=== PATIENT | female | born 1960 | race Caucasian/White ===

== ENCOUNTER 2019-09-27 03:00 | Emergency (ER) | payer MEDICARE, OTHER ==
[2019-09-27] MEDS ORDERED: Ondansetron 4 MG/2 ML SDV IVPUSH ONE ×2 (03:35→04:49)
[2019-09-27] MEDS: Sodium Chloride 0.9% 1,000 ML IV ONE ×2 (03:35→04:50)
[2019-09-27] MEDS ORDERED: Sodium Chloride 0.9% 1,000 ML IV ONE (04:49)
[2019-09-27] MEDS ORDERED: HYDROmorphone 2 MG/ML SDV IVPUSH ONE ×2 (04:50→06:17)
--- NOTE | 2019-09-27 05:58 | EDM.PDOC ---
ED HPI GENERAL MEDICAL PROBLEM - General Chief Complaint: Abdominal Pain Stated Complaint: Abdominal pain Time Seen by Provider: 09/27/19 03:05 Source of Information: Reports: Patient History Limitations: Reports: No Limitations - History of Present Illness INITIAL COMMENTS - FREE TEXT/NARRATIVE: Patient presented to theED because of 2 day h/o abdominal pain, cramping and diffuse,10 with several episode of n/f today. There is no associated fever or chills, no changes in bowel movements or urinary symptoms. She has a h/o intraabdominal surgeries which include: hysterectomy,appendectomy, cholecystectomy and gastric bypass. - Related Data Allergies Allergy/AdvReac Type Severity Reaction Status Date / Time Penicillins Allergy Rash Verified 09/27/19 04:21 Home Meds: Home Meds Acetaminophen/HYDROcodone [[place] 325-10 MG] 1 tab Q6H PRN 09/27/19 [History] Furosemide 20 mg DAILY 09/27/19 [History] Methotrexate Sodium [Methotrexate] 17.5 mg WE 09/27/19 [History] Nabumetone [Relafen] 500 - 1,000 mg BID 09/27/19 [History] clonazePAM [Clonazepam] 1 mg DAILY 09/27/19 [History] clonazePAM [Clonazepam] 1 mg DAILY PRN 09/27/19 [History] hydrOXYzine pamoate [Hydroxyzine Pamoate] 50 mg BID PRN 09/27/19 [History] sulfaSALAzine [sulfaSALAzine DR] 1,000 mg BID 09/27/19 [History] Past Medical History Gastrointestinal History: Reports: Bowel Obstruction, Cholelithiasis Psychiatric History: Reports: Anxiety, Depression ED ROS GENERAL - Review of Systems Review Of Systems: See Below Constitutional: Reports: No Symptoms HEENT: Reports: No Symptoms Respiratory: Reports: No Symptoms Cardiovascular: Reports: No Symptoms Endocrine: Reports: No Symptoms GI/Abdominal: Reports: No Symptoms : Reports: No Symptoms Musculoskeletal: Reports: No Symptoms Skin: Reports: No Symptoms Neurological: Reports: No Symptoms Hematologic/Lymphatic: Reports: No Symptoms Immunologic: Reports: No Symptoms ED EXAM, GI/ABD - Physical Exam Exam: See Below Exam Limited By: No Limitations General Appearance: Alert, No Apparent Distress Ears: Normal External Exam, Normal Canal, Hearing Grossly Normal Nose: Normal Inspection, Normal Mucosa, No Blood Throat/Mouth: Normal Inspection, Normal Lips, Normal Teeth, Normal Gums Head: Atraumatic, Normocephalic Neck: Normal Inspection, Supple, Non-Tender, Full Range of Motion Respiratory/Chest: No Respiratory Distress, Lungs Clear, Normal Breath Sounds, No Accessory Muscle Use, Chest Non-Tender Cardiovascular: Normal Peripheral Pulses, Regular Rate, Rhythm, No Edema, No Gallop, No JVD, No Murmur, No Rub GI/Abdominal Exam: Soft, No Organomegaly, No Distention, No Mass, Other ( diffusely tender) Back Exam: Normal Inspection, Full Range of Motion Extremities: Normal Inspection, Normal Range of Motion Neurological: Alert, Oriented, CN II-XII Intact, Normal Cognition Course - Vital Signs Text/Narrative:: Labs/CT abd/pelvis were discussed with patient and significant other and verbalized full understanding NS 2 L bolus zofran 4 mg IV x2 morphine 4 mg IV x1 dilaudid 1 mg IV x1 Case discussed with Dr Kim Last Recorded V/S: Last Vital Signs Temp 36.2 C 09/27/19 03:00 Pulse 64 09/27/19 03:00 Resp 18 09/27/19 03:00 BP 105/53 L 09/27/19 03:00 Pulse Ox 90 L 09/27/19 03:00 - Orders/Labs/Meds Orders: Active Orders 24 hr Category Date Time Status Abdomen Pelvis w Cont [CT] Stat Exams 09/27/19 04:21 Ordered Labs: Laboratory Tests 09/27/19 09/27/19 09/27/19 Range/Units 03:40 03:40 03:40 WBC 10.7 (4.5-12.0) X10-3/uL RBC 4.41 (3.23-5.20) x10(6)uL Hgb 12.7 (11.5-15.5) g/dL Hct 39.1 (30.0-51.3) % MCV 88.6 (80-96) fL MCH 28.9 (27.7-33.6) pg MCHC 32.6 (32.2-35.4) g/dL RDW 16.1 H (11.5-15.5) % Plt Count 445 H (125-369) X10(3)uL MPV 7.0 L (7.4-10.4) fL Add Manual Diff Yes Neutrophils % (Manual) 84 H (46-82) % Band Neutrophils % 2 (0-6) % Lymphocytes % (Manual) 9 L (13-37) % Monocytes % (Manual) 4 (4-12) % Eosinophils % (Manual) 1 (0-5) % Anisocytosis Rare Sodium 132 L (135-145) mmol/L Potassium 4.6 (3.5-5.3) mmol/L Chloride 94 L (100-110) mmol/L Carbon Dioxide 29 (21-32) mmol/L BUN 7 (7-18) mg/dL Creatinine 1.0 (0.55-1.02) mg/dL Est Cr Clr Drug Dosing TNP Estimated GFR (MDRD) 56 L (>60) BUN/Creatinine Ratio 7.0 L (9-20) Glucose 116 (80-116) mg/dL Calcium 8.7 (8.6-10.2) mg/dL Total Bilirubin 0.3 (0.1-1.3) mg/dL AST 28 H (5-25) IU/L ALT 18 (12-36) U/L Alkaline Phosphatase 92 (56-112) IU/L Total Protein 7.2 (6.0-8.0) g/dL Albumin 3.5 (3.2-4.6) g/dL Globulin 3.7 g/dL Albumin/Globulin Ratio 1.0 Amylase 53 (25-115) U/L Lipase 204 (73-393) U/L Urine Color (YELLOW) Urine Appearance (CLEAR) Urine pH (5.0-6.5) Ur Specific [place] (1.010-1.025) Urine Protein (NEGATIVE) mg/dL Urine Glucose (UA) (NORMAL) mg/dL Urine Ketones (NEGATIVE) mg/dL Urine Occult Blood (NEGATIVE) Urine Nitrite (NEGATIVE) Urine Bilirubin (NEGATIVE) Urine Urobilinogen (NEGATIVE) mg/dL Ur Leukocyte Esterase (NEGATIVE) Urine RBC (0-5) Urine WBC (0-5) Ur Squamous Epith Cells (NS,R,O) Urine Bacteria (NS) 09/27/19 Range/Units 04:50 WBC (4.5-12.0) X10-3/uL RBC (3.23-5.20) x10(6)uL Hgb (11.5-15.5) g/dL Hct (30.0-51.3) % MCV (80-96) fL MCH (27.7-33.6) pg MCHC (32.2-35.4) g/dL RDW (11.5-15.5) % Plt Count (125-369) X10(3)uL MPV (7.4-10.4) fL Add Manual Diff Neutrophils % (Manual) (46-82) % Band Neutrophils % (0-6) % Lymphocytes % (Manual) (13-37) % Monocytes % (Manual) (4-12) % Eosinophils % (Manual) (0-5) % Anisocytosis Sodium (135-145) mmol/L Potassium (3.5-5.3) mmol/L Chloride (100-110) mmol/L Carbon Dioxide (21-32) mmol/L BUN (7-18) mg/dL Creatinine (0.55-1.02) mg/dL Est Cr Clr Drug Dosing Estimated GFR (MDRD) (>60) BUN/Creatinine Ratio (9-20) Glucose (80-116) mg/dL Calcium (8.6-10.2) mg/dL Total Bilirubin (0.1-1.3) mg/dL AST (5-25) IU/L ALT (12-36) U/L Alkaline Phosphatase (56-112) IU/L Total Protein (6.0-8.0) g/dL Albumin (3.2-4.6) g/dL Globulin g/dL Albumin/Globulin Ratio Amylase (25-115) U/L Lipase (73-393) U/L Urine Color Yellow (YELLOW) Urine Appearance Clear (CLEAR) Urine pH 7.0 H (5.0-6.5) Ur Specific [place] 1.005 L (1.010-1.025) Urine Protein Negative (NEGATIVE) mg/dL Urine Glucose (UA) Normal (NORMAL) mg/dL Urine Ketones Negative (NEGATIVE) mg/dL Urine Occult Blood Negative (NEGATIVE) Urine Nitrite Negative (NEGATIVE) Urine Bilirubin Negative (NEGATIVE) Urine Urobilinogen Normal (NEGATIVE) mg/dL Ur Leukocyte Esterase Negative (NEGATIVE) Urine RBC 0-5 (0-5) Urine WBC 0-5 (0-5) Ur Squamous Epith Cells Few H (NS,R,O) Urine Bacteria Few H (NS) Meds: Medications Discontinued Medications Generic Name Dose Route Start Last Admin Trade Name Freq PRN Reason Stop Dose Admin Hydromorphone HCl 1 mg 09/27/19 04:50 09/27/19 05:02 Dilaudid IVPUSH 09/27/19 04:51 1 mg ONETIME ONE Administration Sodium Chloride 1,000 mls @ 999 mls/hr 09/27/19 03:45 09/27/19 03:35 Normal Saline IV 09/27/19 04:45 999 mls/hr .BOLUS ONE Administration Sodium Chloride 1,000 mls @ 999 mls/hr 09/27/19 04:49 09/27/19 04:50 Normal Saline IV 09/27/19 05:49 999 mls/hr .BOLUS ONE Administration Morphine Sulfate 4 mg 09/27/19 03:35 Morphine IVPUSH 09/27/19 03:36 ONETIME ONE Ondansetron HCl 4 mg 09/27/19 04:49 09/27/19 05:00 Zofran IVPUSH 09/27/19 04:50 4 mg ONETIME ONE Administration Ondansetron HCl 4 mg 09/27/19 03:35 Zofran IVPUSH 09/27/19 03:36 ONETIME ONE Departure - Departure Time of Disposition: 05:50 Disposition: DC/Tfer to Acute Hospital 02 Condition: Good Clinical Impression: SBO (small bowel obstruction) - Discharge Information Instructions: Small Bowel Obstruction, [id number] Referrals: Andria Mccord PA [Primary Care Provider] - Sepsis Event Note - Evaluation Sepsis Screening Result: No Definite Risk - Focused Exam Vital Signs: Vital Signs Temp Pulse Resp BP Pulse Ox 09/27/19 03:00 36.2 C 64 18 105/53 L 90 L Date Exam was Performed: 09/27/19 Time Exam was Performed: 05:52 - My Orders Last 24 Hours: My Active Orders 09/27/19 04:21 Abdomen Pelvis w Cont [CT] Stat - Assessment/Plan Last 24 Hours: My Active Orders 09/27/19 04:21 Abdomen Pelvis w Cont [CT] Stat
[2019-09-27] MEDS ORDERED: Iopamidol 755 Mg/ML 100 ML Bottle IV ONE (07:46)
== END 2019-09-27 06:55 ==
LOC: FB.ED 03:00
DX: K56.609 Unspecified intestinal obstruction, unspecified as to partial versus complete obstruction (principal); F41.9 Anxiety disorder, unspecified; Z88.0 Allergy status to penicillin; Z79.899 Other long term (current) drug therapy
CPT/HCPCS: 36415; 74177; 80053; 81001; 82150; 83690; 85025; 96361; 96374; 96375; 96376; 99284; 99285-25; J1170; J2270; J2405; J7030; Q9967

== ENCOUNTER 2020-05-28 16:26 | Emergency (ER) | payer MEDICARE ==
[2020-05-28] MEDS ORDERED: Sodium Chloride 0.9% 10 ML Syringe FLUSH PRN (16:46)
[2020-05-28] MEDS ORDERED: LORazepam 2 MG/ML SDV IVPUSH ONE (16:46)
--- NOTE | 2020-05-28 16:52 | EDM.PDOC ---
ED HPI GENERAL MEDICAL PROBLEM - General Chief Complaint: Cardiovascular Problem Stated Complaint: SENT FROM CLINIC Time Seen by Provider: 05/28/20 16:47 Source of Information: Reports: Patient History Limitations: Reports: No Limitations - History of Present Illness INITIAL COMMENTS - FREE TEXT/NARRATIVE: Presents with chest pressure and sob with exertion x3 days. Patient feels very anxious and has been under a lot of stress because she has been caring for her daughter after undergoing hip surgery. Patient had a normal coronary angiogram in 12/2019. Denies fevers, cough, or known exposure to COVID-19. PMHx includes HTN and Anxiety. Denies prior h/o CAD. Patient's Klonopin was recently discontinued. Onset Date: 05/25/20 Location: Reports: Chest Associated Symptoms: Reports: Shortness of Breath L anterior chest Pain Score (Numeric/FACES): 3 - Related Data Allergies Allergy/AdvReac Type Severity Reaction Status Date / Time Penicillins Allergy Rash Verified 09/27/19 04:21 Home Meds: Home Meds Acetaminophen/HYDROcodone [[place] 325-10 MG] 1 tab Q6H PRN 09/27/19 [History] Doxepin HCl 150 mg BEDTIME 09/27/19 [History] Escitalopram [Lexapro] 30 mg PO DAILY 09/27/19 [History] Folic Acid 1 mg DAILY 09/27/19 [History] Furosemide 20 mg DAILY 09/27/19 [History] Gabapentin [Neurontin] 600 mg PO TID 09/27/19 [History] Nabumetone [Relafen] 500 - 1,000 mg BID 09/27/19 [History] Pantoprazole [ProTONIX] 40 mg PO DAILY 09/27/19 [History] busPIRone HCl [busPIRone] 30 mg BID 09/27/19 [History] hydrOXYzine pamoate [Hydroxyzine Pamoate] 50 mg BID PRN 09/27/19 [History] lamoTRIgine 200 mg BID 09/27/19 [History] metHOTREXate sodium [Methotrexate] 17.5 mg WE 09/27/19 [History] sulfaSALAzine [sulfaSALAzine DR] 1,000 mg BID 09/27/19 [History] LORazepam [Ativan] 1 mg PO Q12H PRN #10 tab 05/28/20 [Rx] Past Medical History Cardiovascular History: Reports: Heart Failure, Hypertension. 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: Musculoskeletal History: Reports: Back Pain, Chronic, RA, Other (See Below) Other Musculoskeletal History: hx drop foot R foot Psychiatric History: Reports: Anxiety, Depression Endocrine/Metabolic History: Reports: Obesity/BMI 30+ Immunologic History: Reports: Other (See Below) Other Immunologic History: low immune system, is on Methotrexate - Infectious Disease History Infectious Disease History: Reports: Chicken Pox, Mumps, Shingles - Past Surgical History HEENT Surgical History: Reports: Adenoidectomy, Oral Surgery, Tonsillectomy GI Surgical History: Reports: Appendectomy, Bariatric Procedure, Cholecystectomy, Colonoscopy, Other (See Below) Other GI Surgeries/Procedures: exp lap with BRAYAN Female Surgical History: Reports: Hysterectomy, Salpingo-Oophorectomy Musculoskeletal Surgical History: Reports: Other (See Below) Other Musculoskeletal Surgeries/Procedures:: R foot for drop foot repair Social & Family History - Family History Family Medical History: Noncontributory - Tobacco Use Tobacco Use Within Last Twelve Months: No - Caffeine Use Caffeine Use: Reports: Soda ED ROS GENERAL - Review of Systems Review Of Systems: Comprehensive ROS is negative, except as noted in HPI. ED EXAM, GENERAL - Physical Exam Exam: See Below Exam Limited By: No Limitations General Appearance: Alert, WD/WN, No Apparent Distress, Anxious Nose: Normal Inspection Throat/Mouth: No Airway Compromise Head: Atraumatic, Normocephalic Respiratory/Chest: No Respiratory Distress, Lungs Clear, Normal Breath Sounds Cardiovascular: Regular Rate, Rhythm, No Murmur Extremities: Normal Range of Motion Neurological: Alert, Normal Cognition Psychiatric: Normal Affect, Anxious Skin Exam: Warm, Dry, Intact #1 Interpretation EKG Date: 05/28/20 Time: 16:35 Rhythm: NSR Rate (Beats/Min): 72 [place]: Normal P-Wave: Present QRS: Other (LVH) ST-T: Normal QT: Normal Course - Vital Signs Last Recorded V/S: Last Vital Signs Temp 36.7 C 05/28/20 16:26 Pulse 77 05/28/20 16:26 Resp 18 05/28/20 16:26 BP 212/89 H 05/28/20 16:26 Pulse Ox 99 05/28/20 16:26 - Orders/Labs/Meds Orders: Active Orders 24 hr Category Date Time Status EKG Documentation Completion [RC] ASDIRECTED Care 05/28/20 16:46 Active Sodium Chloride 0.9% [Saline Flush] Med 05/28/20 16:46 Active 10 ml FLUSH ASDIRECTED PRN Saline Lock Insert [OM.PC] Routine Oth 05/28/20 16:46 Ordered EKG 12 Lead [EK] Stat Ther 05/28/20 16:45 Ordered Medication Orders Sodium Chloride (Saline Flush) 10 ml FLUSH ASDIRECTED PRN PRN Reason: Keep Vein Open Last Admin: 05/28/20 17:00 Dose: 10 ml Documented by: JOEL Labs: Laboratory Tests 05/28/20 05/28/20 05/28/20 Range/Units 16:45 16:45 16:45 WBC 8.4 (4.5-12.0) X10-3/uL RBC 3.82 (3.23-5.20) x10(6)uL Hgb 10.2 L (11.5-15.5) g/dL Hct 31.5 (30.0-51.3) % MCV 82.6 (80-96) fL MCH 26.8 L (27.7-33.6) pg MCHC 32.4 (32.2-35.4) g/dL RDW 19.2 H (11.5-15.5) % Plt Count 545 H (125-369) X10(3)uL MPV 6.7 L (7.4-10.4) fL Neut % (Auto) 72.6 (46-82) % Lymph % (Auto) 17.4 (13-37) % [place] % (Auto) 8.8 (4-12) % Eos % (Auto) 1 (1.0-5.0) % Baso % (Auto) 1 (0-2) % Neut # (Auto) 6.1 (1.6-8.3) # Lymph # (Auto) 1.5 (0.6-5.0) # [place] # (Auto) 0.7 (0.0-1.3) # Eos # (Auto) 0.1 (0.0-0.8) # Baso # (Auto) 0.0 (0.0-0.2) # PT 9.9 (9.0-11.1) sec INR 0.91 L (1.00-1.24) APTT (24.4-33.2) SECONDS D-Dimer, Quantitative 0.40 (0.0-0.59) mg/LFEU Sodium 132 L (135-145) mmol/L Potassium 4.5 (3.5-5.3) mmol/L Chloride 94 L (100-110) mmol/L Carbon Dioxide 28 (21-32) mmol/L BUN 14 (7-18) mg/dL Creatinine 0.9 (0.55-1.02) mg/dL Est Cr Clr Drug Dosing 61.45 mL/min Estimated GFR (MDRD) > 60 (>60) BUN/Creatinine Ratio 15.6 (9-20) Glucose 101 (80-116) mg/dL Calcium 8.8 (8.6-10.2) mg/dL Magnesium 2.1 (1.8-2.5) mg/dL Total Bilirubin 0.4 (0.1-1.3) mg/dL AST 23 D (5-25) IU/L ALT 18 (12-36) U/L Alkaline Phosphatase 85 (56-112) IU/L Troponin I (4.0-60.3) pg/mL NT-Pro-B Natriuret Pep (<=125) pg/mL Total Protein 7.5 (6.0-8.0) g/dL Albumin 3.7 (3.2-4.6) g/dL Globulin 3.8 g/dL Albumin/Globulin Ratio 1.0 05/28/20 05/28/20 Range/Units 16:45 16:45 WBC (4.5-12.0) X10-3/uL RBC (3.23-5.20) x10(6)uL Hgb (11.5-15.5) g/dL Hct (30.0-51.3) % MCV (80-96) fL MCH (27.7-33.6) pg MCHC (32.2-35.4) g/dL RDW (11.5-15.5) % Plt Count (125-369) X10(3)uL MPV (7.4-10.4) fL Neut % (Auto) (46-82) % Lymph % (Auto) (13-37) % [place] % (Auto) (4-12) % Eos % (Auto) (1.0-5.0) % Baso % (Auto) (0-2) % Neut # (Auto) (1.6-8.3) # Lymph # (Auto) (0.6-5.0) # [place] # (Auto) (0.0-1.3) # Eos # (Auto) (0.0-0.8) # Baso # (Auto) (0.0-0.2) # PT (9.0-11.1) sec INR (1.00-1.24) APTT 22.1 L (24.4-33.2) SECONDS D-Dimer, Quantitative (0.0-0.59) mg/LFEU Sodium (135-145) mmol/L Potassium (3.5-5.3) mmol/L Chloride (100-110) mmol/L Carbon Dioxide (21-32) mmol/L BUN (7-18) mg/dL Creatinine (0.55-1.02) mg/dL Est Cr Clr Drug Dosing mL/min Estimated GFR (MDRD) (>60) BUN/Creatinine Ratio (9-20) Glucose (80-116) mg/dL Calcium (8.6-10.2) mg/dL Magnesium (1.8-2.5) mg/dL Total Bilirubin (0.1-1.3) mg/dL AST (5-25) IU/L ALT (12-36) U/L Alkaline Phosphatase (56-112) IU/L Troponin I 5.1 (4.0-60.3) pg/mL NT-Pro-B Natriuret Pep 962 H (<=125) pg/mL Total Protein (6.0-8.0) g/dL Albumin (3.2-4.6) g/dL Globulin g/dL Albumin/Globulin Ratio Meds: Medications Generic Name Dose Route Start Last Admin Trade Name Freq PRN Reason Stop Dose Admin Sodium Chloride 10 ml 05/28/20 16:46 05/28/20 17:00 Saline Flush FLUSH 10 ml ASDIRECTED PRN Administration Keep Vein Open Discontinued Medications Generic Name Dose Route Start Last Admin Trade Name Freq PRN Reason Stop Dose Admin Aspirin 324 mg 05/28/20 17:14 Aspirin PO 05/28/20 17:15 ONETIME ONE Lorazepam 0.5 mg 05/28/20 16:46 05/28/20 17:00 Ativan IVPUSH 05/28/20 16:47 0.5 mg ONETIME ONE Administration - Radiology Interpretation Free Text/Narrative:: CXR: No acute process. (ED provider interpretation) - Re-Assessments/Exams Free Text/Narrative Re-Assessment/Exam: 05/28/20 18:09 Symptoms improved after Ativan 0.5 mg IV. BP improved to 147/69. Departure - Departure Time of Disposition: 18:11 Disposition: Home, Self-Care 01 Condition: Good Clinical Impression: Anxiety Chest pain Qualifiers: Chest pain type: unspecified Qualified Code(s): R07.9 - Chest pain, unspecified Prescriptions: LORazepam [Ativan] 1 mg PO Q12H PRN #10 tab PRN Reason: Anxiety Instructions: Nonspecific Chest Pain, Adult, Generalized Anxiety Disorder, Adult Referrals: Irais Cronin NP [Primary Care Provider] - 2 Days Forms: ED Department Discharge Additional Instructions: Fill the prescription for Ativan at [facility] and take as directed. Follow up with your Primary Physician in 2-3 days. Return to the ER as needed. Sepsis Event Note (ED) - Focused Exam Vital Signs: Vital Signs Temp Pulse Resp BP Pulse Ox 05/28/20 16:26 36.7 C 77 18 212/89 H 99 - My Orders Last 24 Hours: My Active Orders 05/28/20 16:45 EKG 12 Lead [EK] Stat 05/28/20 16:46 EKG Documentation Completion [RC] ASDIRECTED Sodium Chloride 0.9% [Saline Flush] 10 ml FLUSH ASDIRECTED PRN Saline Lock Insert [OM.PC] Routine - Assessment/Plan Last 24 Hours: My Active Orders 05/28/20 16:45 EKG 12 Lead [EK] Stat 05/28/20 16:46 EKG Documentation Completion [RC] ASDIRECTED Sodium Chloride 0.9% [Saline Flush] 10 ml FLUSH ASDIRECTED PRN Saline Lock Insert [OM.PC] Routine
[2020-05-28] MEDS ORDERED: Aspirin 81 MG Tab.Chew PO ONE (17:14)
--- NOTE | 2020-05-28 17:32 | CR ---
INDICATION: Chest pain, short of breath. Very short of breath on exertion. CHEST, ONE VIEW: AP portable upright view of the chest 05/28/20 was compared with PA view of 09/22/09 and revealed evidence of exogenous obesity. The heart did not appear enlarged. The aorta is slightly tortuous with minimal calcification in the arch area. Overlying EKG leads are noted. An active infiltrate or effusion was not identified. IMPRESSION: 1. No acute process. 2. Exogenous obesity. MTDD
== END 2020-05-28 18:55 | disposition home or self-care (01) ==
LOC: FB.ED 16:26
DX: F41.9 Anxiety disorder, unspecified (principal); I11.0 Hypertensive heart disease with heart failure; I50.9 Heart failure, unspecified; F32.9 Major depressive disorder, single episode, unspecified; E66.9 Obesity, unspecified; Z88.0 Allergy status to penicillin; Z90.49 Acquired absence of other specified parts of digestive tract; Z90.710 Acquired absence of both cervix and uterus; Z79.899 Other long term (current) drug therapy; Z68.33 Body mass index [BMI] 33.0-33.9, adult
CPT/HCPCS: 36415; 71045; 80053; 83735; 83880; 84484; 85025; 85379; 85610; 85730; 93005; 96374; 99285-25; A9270-GY; J2060

== ENCOUNTER 2021-05-08 08:10 | Inpatient (IN) | payer MEDICARE ==
[2021-05-08] MEDS ORDERED: Iopamidol 755 Mg/ML 100 ML Bottle IV ONE (13:47)
[2021-05-08] MEDS ORDERED: Diatrizoate Meglumine/Diatrizoate Sodium 37% 30 ML Bottle PO ONE (13:47)
[2021-05-08] MEDS: Sodium Chloride 0.9% 1,000 ML IV SCH ×2 (14:15→22:07)
[2021-05-08] MEDS: Morphine 2 MG/ML SYRINGE IVPUSH PRN ×2 (14:20→17:05)
--- NOTE | 2021-05-08 14:28 | PCM.SN.2 ---
- Free Text/Narrative Note: I was called to start an IV on this patient with a history of being difficult to start an IV(has taken 16 attempts in past). There has been 2 attempts today. Attemptted times one in her left hand without success per sterile technique. Started a 20 jelco in her right wrist per sterile technique and secured this, IV runs well. Lidocaine 1% 2 cc's was used. Report given to Delisa HERRERA Time Documentation
[2021-05-08] MEDS: Enoxaparin 40 MG/0.4 ML Syringe SUBCUT SCH (14:40)
[2021-05-08] MEDS: Ondansetron 4 MG/2 ML SDV IVPUSH PRN ×2 (14:46→20:31)
--- NOTE | 2021-05-08 16:01 | CT ---
INDICATION: Small bowel obstruction. CT ABDOMEN AND PELVIS WITH CONTRAST: Spiral 3.75 mm axial sections were obtained through the abdomen and pelvis with oral and IV contrast (100 mL Isovue-370 at 2 mL/second) with sagittal and coronal reconstructions 05/08/21 and compared with 12/29/19. TOTAL EXAM DLP: 1532.53 mGy/cm. The lower lung damon and pleural spaces visualized showed no active infiltrate or effusion with minimal scarring in the lingula, unchanged. The heart did not appear enlarged. No pericardial effusion was seen. The liver appeared normal with no significant ductal dilatation in this postcholecystectomy patient. There is one tiny stable low-density lesion in the medial anterior right lobe, axial image 27 and 28, likely simple cyst. The common bile duct is somewhat dilated, likely on the basis of postcholecystectomy status - correlate clinically. Transversely, it measures approximately 13 mm on the current study on axial image 35 and measured approximately 13 mm also on the previous examination at a similar location. The adrenal glands, spleen and for the most part, kidneys, appear to be normal. At the distal body of the pancreas, there appears to be a slight bulge. On coronal and sagittal reconstructions, however, this appearance was not persistent and it is most likely due to a contraction of adjacent bowel or simply a variation in inspiration compared with the previous study. However, if lab results or symptoms are referable to this area at some point, additional examination may be warranted, such as MRI of the pancreas. No definite retroperitoneal mass was seen. Calcifications are noted in the aorta (no aneurysm was seen), splenic artery, iliac arteries and left femoral artery. 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 The urinary bladder was unremarkable. The appendix is absent compatible with appendectomy. No free air is noted intraperitoneally. Dilated loops of what appear to be jejunum are noted in the mid to left abdomen with an appearance of fecalization of the contents distally compatible with a fairly longstanding obstructive process, which does not appear to be acute since there is fluid and gas throughout the colon, including the rectum. The exact transition point of dilated small bowel to normal caliber small bowel appears to be in the left flank, apparently at the site of previous anastomosis of small bowel seen on axial image 68 and coronal image 58 and on sagittal images 101 through 104. This is posteriorly located. Dextroconvex scoliosis of the lower lumbar spine is noted with similar degree of hypertrophic degenerative change and disc disease at L4-5 and L5-S1. IMPRESSION: 1. Small bowel obstruction that appears to be longstanding and apparently partial in nature involving proximal jejunal loops with fecalization of distal jejunal contents. The transition to normal caliber small bowel is in the left lower quadrant-pelvis posteriorly at the site of previous small bowel anastomosis. 2. ASD. 3. Post cholecystectomy, appendectomy, hysterectomy. 4. Minimal ventral hernia, including only fat, at the level of the lower abdomen with another small hernia, also including only fat at the level of the upper middle pelvis. Both of these findings apparently were present previously. 5. Scoliosis and degenerative changes and disc disease lumbosacral spine - L4 through S1. Report was called to Dr. Mcclellan at 1515 hours, 05/08/21. [facility]
--- NOTE | 2021-05-08 19:16 | PCM.HP.2 ---
H&P History of Present Illness - General Date of Service: 05/08/21 Admit Problem/Dx: Admission Diagnosis/Problem Admission Diagnosis/Problem Small bowel obstruction Source of Information: Patient, Old Records History Limitations: Reports: No Limitations - History of Present Illness Initial Comments - Free Text/Narative: Ms Polanco is a 60 yo female with abdominal pain since Wednesday. Associated with nausea. Poorly localized,but initially in the epigastrium. 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 She also has a h/o gastric bypass 20 years ago,as well as appendectomy & gall bladder surgery. Abdominal Pain Score (Numeric/FACES): 7 - Related Data Allergies/Adverse Reactions: Allergies Allergy/AdvReac Type Severity Reaction Status Date / Time Penicillins Allergy Rash Verified 09/27/19 04:21 Home Medications: Home Meds Acetaminophen/HYDROcodone [[place] 325-10 MG] 1 tab PO Q6H PRN 09/27/19 [History] Doxepin HCl 300 mg PO BEDTIME 09/27/19 [History] Escitalopram [Lexapro] 30 mg PO DAILY 09/27/19 [History] Folic Acid 1 mg PO DAILY 09/27/19 [History] Furosemide 20 mg PO DAILY 09/27/19 [History] Gabapentin [Neurontin] 600 mg PO TID 09/27/19 [History] Pantoprazole [ProTONIX] 40 mg PO DAILY 09/27/19 [History] busPIRone HCl [busPIRone] 45 mg PO BID 09/27/19 [History] hydrOXYzine pamoate [Hydroxyzine Pamoate] 50 mg PO BID PRN 09/27/19 [History] lamoTRIgine 200 mg PO BID 09/27/19 [History] LORazepam [Ativan] 1 mg PO Q12H PRN #10 tab 05/28/20 [Rx] Ascorbic Acid [Vitamin C] 250 mg PO DAILY 05/08/21 [History] Cholecalciferol (Vitamin D3) [Vitamin D3] 50 mcg PO BID 05/08/21 [History] ClonazePAM [KlonoPIN] 0.5 mg PO DAILY PRN 05/08/21 [History] Hydroxychloroquine Sulfate [Plaquenil] 200 mg PO DAILY 05/08/21 [History] Leflunomide 10 mg PO DAILY 05/08/21 [History] Losartan [Cozaar] 50 mg PO DAILY 05/08/21 [History] Metoprolol Tartrate 50 mg PO BID 05/08/21 [History] Pyridoxine HCl [Vitamin B-6] 25 mg PO DAILY 05/08/21 [History] QUEtiapine [SEROquel] 25 mg PO DAILY 05/08/21 [History] QUEtiapine [SEROquel] 50 mg PO BEDTIME 05/08/21 [History] clonazePAM [Clonazepam] 1 mg PO DAILY 05/08/21 [History] Past Medical History Cardiovascular History: Reports: Heart Failure, Hypertension Other Cardiovascular History: Angiogram. ECHO Gastrointestinal History: Reports: Bowel Obstruction, Cholelithiasis Genitourinary History: Reports: None [employer] History: Reports: Other OB/BYN History: Musculoskeletal History: Reports: Back Pain, Chronic, RA, Other (See Below) Other Musculoskeletal History: hx drop foot R foot Neurological History: Reports: Migraines Psychiatric History: Reports: Anxiety, Depression Endocrine/Metabolic History: Reports: Obesity/BMI 30+ Hematologic History: Reports: Anemia Immunologic History: Reports: Other (See Below) Other Immunologic History: low immune system, is on Methotrexate - Infectious Disease History Infectious Disease History: Reports: Chicken Pox, Mumps, Shingles - Past Surgical History HEENT Surgical History: Reports: Adenoidectomy, Oral Surgery, Tonsillectomy Cardiovascular Surgical History: Reports: None GI Surgical History: Reports: Appendectomy, Bariatric Procedure, Cholecystectomy, Colonoscopy, Other (See Below) Other GI Surgeries/Procedures: exp lap with BRAYAN Female Surgical History: Reports: Hysterectomy, Salpingo-Oophorectomy Other Female Surgeries/Procedures: complete hyst Musculoskeletal Surgical History: Reports: Other (See Below) Other Musculoskeletal Surgeries/Procedures:: R foot for drop foot repair. 3 back surgeries Social & Family History - Family History Family Medical History: No Pertinent Family History - Caffeine Use Caffeine Use: Reports: Soda Other Caffeine Use: Diet Coke 5/day - Alcohol Use Days Per Week of Alcohol Use: 2 Number of Drinks Per Day: 2 Total Drinks Per Week: 4 - Recreational Drug Use Recreational Drug Use: No H&P Review of Systems - Review of Systems: Review Of Systems: Comprehensive ROS is negative, except as noted in HPI. Exam - Exam Exam: See Below - Vital Signs Vital Signs: Last Vital Signs Temp 97.4 F 05/08/21 16:03 Pulse 72 05/08/21 16:03 Resp 16 05/08/21 16:03 BP 119/68 05/08/21 16:03 Pulse Ox 96 05/08/21 16:03 Weight: 89.159 kg - Exam General: Alert, Oriented, Cooperative HEENT: PERRLA, Hearing Intact, Mucosa Moist & [place], Nares Patent, Normal Nasal Septum, Posterior Pharynx Clear, Conjunctiva Clear, EOMI, EACs Clear, TMs Clear Neck: Supple, Trachea Midline, 2 Lungs: Clear to Auscultation, Normal Respiratory Effort Cardiovascular: Regular Rate, Regular Rhythm GI/Abdominal Exam: Normal Bowel Sounds, Soft, No Organomegaly, No Distention, No Abnormal Bruit, No Mass, Pelvis Stable, Tender. No: Distended, Guarding, Rigid, Rebound, Hernia, Mass, Hepatomegaly, Splenomegaly (Female) Exam: Deferred Rectal (Female) Exam: Deferred Back Exam: Normal Inspection, Full Range of Motion, NT Extremities: Normal Inspection, Normal Range of Motion, Non-Tender, No Pedal Edema, Normal Capillary Refill Skin: Warm, Dry, Intact Neurological: Cranial Nerves Intact, Reflexes Equal Bilateral Neuro Extensive - Mental Status: Alert, Oriented x3, Normal Mood/Affect, Normal Cognition Neuro Extensive - Motor, Sensory, Reflexes: CN II-XII Intact, Normal Gait, Norm al Reflexes Psychiatric: Alert, Normal Affect, Normal Mood - Patient Data Lab Results Last 24 hrs: Laboratory Results - last 24 hr 05/08/21 05/08/21 05/08/21 Range/Units 12:57 12:57 14:50 WBC 6.2 (3.0-10.3) x10-3/uL RBC 4.61 (3.60-5.20) x10(6)uL Hgb 14.5 (11.4-15.5) g/dL Hct 44.3 (34.2-48.2) % MCV 96.3 (76.7-100.5) fL MCH 31.4 (23.9-33.9) pg MCHC 32.6 (31.9-34.8) g/dL RDW 13.7 (12.3-16.5) % Plt Count 347 (151-488) x10(3)uL MPV 6.7 L (7.1-12.4) fL Neut % (Auto) 79.1 H (30.8-76.2) % Lymph % (Auto) 12.7 L (18.4-52.1) % [place] % (Auto) 7.8 (4.4-15.7) % Eos % (Auto) 0.3 L (0.6-8.1) % Baso % (Auto) 0.1 L (0.2-1.5) % Neut # (Auto) 4.9 (1.5-6.3) x10-3/uL Lymph # (Auto) 0.8 L (1.0-4.4) x10-3/uL [place] # (Auto) 0.5 (0.3-1.0) x10-3/uL Eos # (Auto) 0.0 (0.0-0.8) x10-3/uL Baso # (Auto) 0.0 (0.0-0.1) x10-3/uL Sodium 137 (135-145) mmol/L Potassium 4.6 (3.5-5.3) mmol/L Chloride 99 L D (100-110) mmol/L Carbon Dioxide 29 (21-32) mmol/L BUN 8 (7-18) mg/dL Creatinine 0.7 (0.55-1.02) mg/dL Est Cr Clr Drug Dosing TNP Estimated GFR (MDRD) > 60 (>60) BUN/Creatinine Ratio 11.4 (9-20) Glucose 101 (80-116) mg/dL Calcium 9.0 (8.6-10.2) mg/dL Total Bilirubin 0.4 (0.1-1.3) mg/dL AST 21 (5-25) IU/L ALT 23 D (12-36) U/L Alkaline Phosphatase 111 (56-112) IU/L Total Protein 7.5 (6.0-8.0) g/dL Albumin 3.5 (3.2-4.6) g/dL Globulin 4.0 g/dL Albumin/Globulin Ratio 0.9 Urine Color Yellow (YELLOW) Urine Appearance Clear (CLEAR) Urine pH 6.0 (5.0-6.5) Ur Specific [place] 1.010 (1.010-1.025) Urine Protein Negative (NEGATIVE) mg/dL Urine Glucose (UA) Normal (NORMAL) mg/dL Urine Ketones 15 H (NEGATIVE) mg/dL Urine Occult Blood Negative (NEGATIVE) Urine Nitrite Negative (NEGATIVE) Urine Bilirubin Negative (NEGATIVE) Urine Urobilinogen Normal (NEGATIVE) mg/dL Ur Leukocyte Esterase Negative (NEGATIVE) Urine RBC 0-5 (0-5) Urine WBC 0-5 (0-5) Ur Squamous Epith Cells Few H (NS,R,O) Urine Bacteria Few H (NS) Result Diagrams: 05/08/21 12:57 05/08/21 12:57 Sepsis Event Note - Evaluation Sepsis Screening Result: No Definite Risk - Focused Exam Vital Signs: Vital Signs Temp Pulse Resp BP Pulse Ox 05/08/21 16:03 97.4 F 72 16 119/68 96 05/08/21 12:20 97.0 F 73 16 183/85 H 97 - Problem List (1) SBO (small bowel obstruction) SNOMED Code(s): 847824701 ICD Code: K56.609 - UNSP INTESTNL OBST, UNSP TO PARTIAL VERSUS COMPLETE OBST Status: Acute Current Visit: No (2) S/P gastric bypass SNOMED Code(s): 009440218, 917980592, 002450700, 348729708 ICD Code: Z98.84 - BARIATRIC SURGERY STATUS Status: Chronic Current Visit: Yes (3) Anxiety SNOMED Code(s): 58169936 ICD Code: F41.9 - ANXIETY DISORDER, UNSPECIFIED Status: Chronic Current Visit: No Problem List Initiated/Reviewed/Updated: Yes Orders Last 24hrs: Active Orders 24 hr Category Date Time Status Admission Status [Patient Status] [ADT] Routine ADT 05/08/21 13:12 Active Height and Weight [RC] DAILY Care 05/08/21 12:11 Active Intake and Output [RC] 06,14,22 Care 05/08/21 12:12 Active Nasogastric Tube Management [Gastrointestinal Tube Mgmt Care 05/08/21 16:09 Active ] [RC] QSHIFT Oxygen Therapy [RC] PRN Care 05/08/21 12:11 Active Up ad Paulette [RC] ASDIRECTED Care 05/08/21 12:11 Active VTE/DVT Education [RC] Per Unit Routine Care 05/08/21 12:11 Active Vital Signs [RC] Q4H Care 05/08/21 12:11 Active Nothing per Oral Now Diet [DIET] Diet 05/08/21 Lunch Active BASIC METABOLIC PANEL,BMP [CHEM] AM Lab 05/09/21 05:11 Ordered CBC WITH AUTO DIFF [HEME] AM Lab 05/09/21 05:11 Ordered Enoxaparin [Lovenox] Med 05/08/21 13:30 Active 40 mg SUBCUT Q24H Morphine Med 05/08/21 12:11 Active 2 mg IVPUSH Q2H PRN Ondansetron [Zofran] Med 05/08/21 12:11 Active 4 mg IVPUSH Q4H PRN Sodium Chloride 0.9% [Normal Saline] 1,000 ml Med 05/08/21 12:15 Active IV ASDIRECTED Sodium Chloride 0.9% [Saline Flush] Med 05/08/21 12:11 Active 10 ml FLUSH ASDIRECTED PRN Nasogastric Orogastric Tube Insertion [OM.PC] Routine Oth 05/08/21 16:09 Ordered Peripheral IV Insertion Adult [OM.PC] Routine Oth 05/08/21 12:11 Ordered Sequential Compression Device [OM.PC] Per Unit Routine Oth 05/08/21 12:13 Ordered Resuscitation Status Routine Resus Stat 05/08/21 12:11 Ordered Medication Orders Enoxaparin Sodium (Enoxaparin 40 Mg/0.4 Ml Syringe) 40 mg SUBCUT Q24H [facility] Last Admin: 05/08/21 14:40 Dose: 40 mg Documented by: SOFI Sodium Chloride (Normal Saline) 1,000 mls @ 125 mls/hr IV ASDIRECTED [facility] Last Admin: 05/08/21 14:15 Dose: 125 mls/hr Documented by: SOFI Morphine Sulfate (Morphine 2 Mg/Ml Syringe) 2 mg IVPUSH Q2H PRN PRN Reason: Pain (severe 7-10) Last Admin: 05/08/21 17:05 Dose: 2 mg Documented by: Admin: 05/08/21 14:20 Dose: 2 mg Documented by: SOFI Ondansetron HCl (Ondansetron 4 Mg/2 Ml Sdv) 4 mg IVPUSH Q4H PRN PRN Reason: Nausea/Vomiting Last Admin: 05/08/21 14:46 Dose: 4 mg Documented by: SOFI Sodium Chloride (Sodium Chloride 0.9% 10 Ml Syringe) 10 ml FLUSH ASDIRECTED PRN PRN Reason: Keep Vein Open Assessment/Plan Comment:: CT abdomen Pelvis shows SBO,as per Dr Ng,with a transition point,possibly f rom previous colectomy. I have attempted to contact General Surgery but we have no one airborne mission systems. We trial conservative measures ( NPO,IVF,NG tube),pain control.
[2021-05-08] MEDS: HYDROmorphone 2 MG/ML SDV IVPUSH PRN (19:58)
[2021-05-08] MEDS: Sodium Chloride 0.9% 10 ML Syringe FLUSH PRN (20:00)
[2021-05-09] MEDS: HYDROmorphone 2 MG/ML SDV IVPUSH PRN ×4 (00:12→13:57)
[2021-05-09] MEDS: Sodium Chloride 0.9% 10 ML Syringe FLUSH PRN ×5 (00:16→22:14)
[2021-05-09] MEDS: Ondansetron 4 MG/2 ML SDV IVPUSH PRN ×2 (04:38→09:39)
[2021-05-09] MEDS: Sodium Chloride 0.9% 1,000 ML IV SCH ×3 (06:16→22:16)
--- NOTE | 2021-05-09 10:17 | PCM.PN ---
- General Info Date of Service: 05/09/21 Admission Dx/Problem (Free Text): Patient states that she is a little less bloated today. The EMS had to be changed to Dilantin last night and that's helped. Her nausea is gone. She's not getting anything out of the NG tube. She's had no bowel movements or is not passing gas. - Patient Data Vitals - Most Recent: Last Vital Signs Temp 97.1 F 05/09/21 03:30 Pulse 75 05/09/21 03:30 Resp 16 05/09/21 03:30 BP 131/67 05/09/21 03:30 Pulse Ox 100 05/09/21 03:30 Weight - Most Recent: 196 lb 9 oz I&O - Last 24 Hours: Intake & Output 05/08/21 05/09/21 05/09/21 22:59 06:59 14:59 Intake Total 850 1086 Output Total 150 600 Balance 700 486 Lab Results Last 24 Hours: Laboratory Results - last 24 hr 05/08/21 05/08/21 05/08/21 Range/Units 12:57 12:57 14:50 WBC 6.2 (3.0-10.3) x10-3/uL RBC 4.61 (3.60-5.20) x10(6)uL Hgb 14.5 (11.4-15.5) g/dL Hct 44.3 (34.2-48.2) % MCV 96.3 (76.7-100.5) fL MCH 31.4 (23.9-33.9) pg MCHC 32.6 (31.9-34.8) g/dL RDW 13.7 (12.3-16.5) % Plt Count 347 (151-488) x10(3)uL MPV 6.7 L (7.1-12.4) fL Neut % (Auto) 79.1 H (30.8-76.2) % Lymph % (Auto) 12.7 L (18.4-52.1) % [place] % (Auto) 7.8 (4.4-15.7) % Eos % (Auto) 0.3 L (0.6-8.1) % Baso % (Auto) 0.1 L (0.2-1.5) % Neut # (Auto) 4.9 (1.5-6.3) x10-3/uL Lymph # (Auto) 0.8 L (1.0-4.4) x10-3/uL [place] # (Auto) 0.5 (0.3-1.0) x10-3/uL Eos # (Auto) 0.0 (0.0-0.8) x10-3/uL Baso # (Auto) 0.0 (0.0-0.1) x10-3/uL Sodium 137 (135-145) mmol/L Potassium 4.6 (3.5-5.3) mmol/L Chloride 99 L D (100-110) mmol/L Carbon Dioxide 29 (21-32) mmol/L BUN 8 (7-18) mg/dL Creatinine 0.7 (0.55-1.02) mg/dL Est Cr Clr Drug Dosing TNP Estimated GFR (MDRD) > 60 (>60) BUN/Creatinine Ratio 11.4 (9-20) Glucose 101 (80-116) mg/dL Calcium 9.0 (8.6-10.2) mg/dL Total Bilirubin 0.4 (0.1-1.3) mg/dL AST 21 (5-25) IU/L ALT 23 D (12-36) U/L Alkaline Phosphatase 111 (56-112) IU/L Total Protein 7.5 (6.0-8.0) g/dL Albumin 3.5 (3.2-4.6) g/dL Globulin 4.0 g/dL Albumin/Globulin Ratio 0.9 Urine Color Yellow (YELLOW) Urine Appearance Clear (CLEAR) Urine pH 6.0 (5.0-6.5) Ur Specific [place] 1.010 (1.010-1.025) Urine Protein Negative (NEGATIVE) mg/dL Urine Glucose (UA) Normal (NORMAL) mg/dL Urine Ketones 15 H (NEGATIVE) mg/dL Urine Occult Blood Negative (NEGATIVE) Urine Nitrite Negative (NEGATIVE) Urine Bilirubin Negative (NEGATIVE) Urine Urobilinogen Normal (NEGATIVE) mg/dL Ur Leukocyte Esterase Negative (NEGATIVE) Urine RBC 0-5 (0-5) Urine WBC 0-5 (0-5) Ur Squamous Epith Cells Few H (NS,R,O) Urine Bacteria Few H (NS) 05/09/21 05/09/21 Range/Units 06:06 06:06 WBC 3.8 (3.0-10.3) x10-3/uL RBC 3.67 (3.60-5.20) x10(6)uL Hgb 11.5 D (11.4-15.5) g/dL Hct 35.5 (34.2-48.2) % MCV 96.8 (76.7-100.5) fL MCH 31.4 (23.9-33.9) pg MCHC 32.4 (31.9-34.8) g/dL RDW 13.5 (12.3-16.5) % Plt Count 264 (151-488) x10(3)uL MPV 6.5 L (7.1-12.4) fL Neut % (Auto) 62.4 (30.8-76.2) % Lymph % (Auto) 24.5 (18.4-52.1) % [place] % (Auto) 11.4 (4.4-15.7) % Eos % (Auto) 1.3 (0.6-8.1) % Baso % (Auto) 0.4 (0.2-1.5) % Neut # (Auto) 2.3 (1.5-6.3) x10-3/uL Lymph # (Auto) 0.9 L (1.0-4.4) x10-3/uL [place] # (Auto) 0.4 (0.3-1.0) x10-3/uL Eos # (Auto) 0.0 (0.0-0.8) x10-3/uL Baso # (Auto) 0.0 (0.0-0.1) x10-3/uL Sodium 141 (135-145) mmol/L Potassium 3.5 D (3.5-5.3) mmol/L Chloride 106 D (100-110) mmol/L Carbon Dioxide 28 (21-32) mmol/L BUN 10 (7-18) mg/dL Creatinine 0.6 (0.55-1.02) mg/dL Est Cr Clr Drug Dosing 91.01 Estimated GFR (MDRD) > 60 (>60) BUN/Creatinine Ratio 16.7 (9-20) Glucose 79 L (80-116) mg/dL Calcium 7.7 L (8.6-10.2) mg/dL Total Bilirubin (0.1-1.3) mg/dL AST (5-25) IU/L ALT (12-36) U/L Alkaline Phosphatase (56-112) IU/L Total Protein (6.0-8.0) g/dL Albumin (3.2-4.6) g/dL Globulin g/dL Albumin/Globulin Ratio Urine Color (YELLOW) Urine Appearance (CLEAR) Urine pH (5.0-6.5) Ur Specific [place] (1.010-1.025) Urine Protein (NEGATIVE) mg/dL Urine Glucose (UA) (NORMAL) mg/dL Urine Ketones (NEGATIVE) mg/dL Urine Occult Blood (NEGATIVE) Urine Nitrite (NEGATIVE) Urine Bilirubin (NEGATIVE) Urine Urobilinogen (NEGATIVE) mg/dL Ur Leukocyte Esterase (NEGATIVE) Urine RBC (0-5) Urine WBC (0-5) Ur Squamous Epith Cells (NS,R,O) Urine Bacteria (NS) Med Orders - Current: Current Medications Enoxaparin Sodium (Enoxaparin 40 Mg/0.4 Ml Syringe) 40 mg SUBCUT Q24H [facility] Last Admin: 05/08/21 14:40 Dose: 40 mg Documented by: Hydromorphone HCl (Hydromorphone 2 Mg/Ml Sdv) 1 mg IVPUSH Q4H PRN PRN Reason: Breakthrough Pain Last Admin: 05/09/21 09:39 Dose: 1 mg Documented by: Sodium Chloride (Normal Saline) 1,000 mls @ 125 mls/hr IV ASDIRECTED [facility] Last Admin: 05/09/21 06:16 Dose: 125 mls/hr Documented by: Ondansetron HCl (Ondansetron 4 Mg/2 Ml Sdv) 4 mg IVPUSH Q4H PRN PRN Reason: Nausea/Vomiting Last Admin: 05/09/21 09:39 Dose: 4 mg Documented by: Sodium Chloride (Sodium Chloride 0.9% 10 Ml Syringe) 10 ml FLUSH ASDIRECTED PRN PRN Reason: Keep Vein Open Last Admin: 05/09/21 04:36 Dose: 10 ml Documented by: Discontinued Medications Diatrizoate Meglum/Diatrizoate Sod (Diatrizoate Meglumine/Diatrizoate Sodium 37% 30 Ml Bottle) 30 ml PO . DIRECTED ONE Stop: 05/08/21 13:48 Last Admin: 05/08/21 14:36 Dose: 30 ml Documented by: Iopamidol (Iopamidol 755 Mg/Ml 100 Ml Bottle) 100 ml IV . DIRECTED ONE Stop: 05/08/21 13:48 Last Admin: 05/08/21 14:36 Dose: 100 ml Documented by: Morphine Sulfate (Morphine 2 Mg/Ml Syringe) 2 mg IVPUSH Q2H PRN PRN Reason: Pain (severe 7-10) Last Admin: 05/08/21 17:05 Dose: 2 mg Documented by: - Exam General: Alert, Oriented Neck: Supple Lungs: Normal Respiratory Effort GI/Abdominal Exam: Normal Bowel Sounds, Soft, Other (Minimal tenderness to diffuse palpation). No: Distended - Patient Data Lab Results Last 24 hrs: Laboratory Results - last 24 hr 05/08/21 05/08/21 05/08/21 Range/Units 12:57 12:57 14:50 WBC 6.2 (3.0-10.3) x10-3/uL RBC 4.61 (3.60-5.20) x10(6)uL Hgb 14.5 (11.4-15.5) g/dL Hct 44.3 (34.2-48.2) % MCV 96.3 (76.7-100.5) fL MCH 31.4 (23.9-33.9) pg MCHC 32.6 (31.9-34.8) g/dL RDW 13.7 (12.3-16.5) % Plt Count 347 (151-488) x10(3)uL MPV 6.7 L (7.1-12.4) fL Neut % (Auto) 79.1 H (30.8-76.2) % Lymph % (Auto) 12.7 L (18.4-52.1) % [place] % (Auto) 7.8 (4.4-15.7) % Eos % (Auto) 0.3 L (0.6-8.1) % Baso % (Auto) 0.1 L (0.2-1.5) % Neut # (Auto) 4.9 (1.5-6.3) x10-3/uL Lymph # (Auto) 0.8 L (1.0-4.4) x10-3/uL [place] # (Auto) 0.5 (0.3-1.0) x10-3/uL Eos # (Auto) 0.0 (0.0-0.8) x10-3/uL Baso # (Auto) 0.0 (0.0-0.1) x10-3/uL Sodium 137 (135-145) mmol/L Potassium 4.6 (3.5-5.3) mmol/L Chloride 99 L D (100-110) mmol/L Carbon Dioxide 29 (21-32) mmol/L BUN 8 (7-18) mg/dL Creatinine 0.7 (0.55-1.02) mg/dL Est Cr Clr Drug Dosing TNP Estimated GFR (MDRD) > 60 (>60) BUN/Creatinine Ratio 11.4 (9-20) Glucose 101 (80-116) mg/dL Calcium 9.0 (8.6-10.2) mg/dL Total Bilirubin 0.4 (0.1-1.3) mg/dL AST 21 (5-25) IU/L ALT 23 D (12-36) U/L Alkaline Phosphatase 111 (56-112) IU/L Total Protein 7.5 (6.0-8.0) g/dL Albumin 3.5 (3.2-4.6) g/dL Globulin 4.0 g/dL Albumin/Globulin Ratio 0.9 Urine Color Yellow (YELLOW) Urine Appearance Clear (CLEAR) Urine pH 6.0 (5.0-6.5) Ur Specific [place] 1.010 (1.010-1.025) Urine Protein Negative (NEGATIVE) mg/dL Urine Glucose (UA) Normal (NORMAL) mg/dL Urine Ketones 15 H (NEGATIVE) mg/dL Urine Occult Blood Negative (NEGATIVE) Urine Nitrite Negative (NEGATIVE) Urine Bilirubin Negative (NEGATIVE) Urine Urobilinogen Normal (NEGATIVE) mg/dL Ur Leukocyte Esterase Negative (NEGATIVE) Urine RBC 0-5 (0-5) Urine WBC 0-5 (0-5) Ur Squamous Epith Cells Few H (NS,R,O) Urine Bacteria Few H (NS) 05/09/21 05/09/21 Range/Units 06:06 06:06 WBC 3.8 (3.0-10.3) x10-3/uL RBC 3.67 (3.60-5.20) x10(6)uL Hgb 11.5 D (11.4-15.5) g/dL Hct 35.5 (34.2-48.2) % MCV 96.8 (76.7-100.5) fL MCH 31.4 (23.9-33.9) pg MCHC 32.4 (31.9-34.8) g/dL RDW 13.5 (12.3-16.5) % Plt Count 264 (151-488) x10(3)uL MPV 6.5 L (7.1-12.4) fL Neut % (Auto) 62.4 (30.8-76.2) % Lymph % (Auto) 24.5 (18.4-52.1) % [place] % (Auto) 11.4 (4.4-15.7) % Eos % (Auto) 1.3 (0.6-8.1) % Baso % (Auto) 0.4 (0.2-1.5) % Neut # (Auto) 2.3 (1.5-6.3) x10-3/uL Lymph # (Auto) 0.9 L (1.0-4.4) x10-3/uL [place] # (Auto) 0.4 (0.3-1.0) x10-3/uL Eos # (Auto) 0.0 (0.0-0.8) x10-3/uL Baso # (Auto) 0.0 (0.0-0.1) x10-3/uL Sodium 141 (135-145) mmol/L Potassium 3.5 D (3.5-5.3) mmol/L Chloride 106 D (100-110) mmol/L Carbon Dioxide 28 (21-32) mmol/L BUN 10 (7-18) mg/dL Creatinine 0.6 (0.55-1.02) mg/dL Est Cr Clr Drug Dosing 91.01 Estimated GFR (MDRD) > 60 (>60) BUN/Creatinine Ratio 16.7 (9-20) Glucose 79 L (80-116) mg/dL Calcium 7.7 L (8.6-10.2) mg/dL Total Bilirubin (0.1-1.3) mg/dL AST (5-25) IU/L ALT (12-36) U/L Alkaline Phosphatase (56-112) IU/L Total Protein (6.0-8.0) g/dL Albumin (3.2-4.6) g/dL Globulin g/dL Albumin/Globulin Ratio Urine Color (YELLOW) Urine Appearance (CLEAR) Urine pH (5.0-6.5) Ur Specific [place] (1.010-1.025) Urine Protein (NEGATIVE) mg/dL Urine Glucose (UA) (NORMAL) mg/dL Urine Ketones (NEGATIVE) mg/dL Urine Occult Blood (NEGATIVE) Urine Nitrite (NEGATIVE) Urine Bilirubin (NEGATIVE) Urine Urobilinogen (NEGATIVE) mg/dL Ur Leukocyte Esterase (NEGATIVE) Urine RBC (0-5) Urine WBC (0-5) Ur Squamous Epith Cells (NS,R,O) Urine Bacteria (NS) Result Diagrams: 05/09/21 06:06 05/09/21 06:06 Sepsis Event Note - Evaluation Sepsis Screening Result: No Definite Risk - Focused Exam Vital Signs: Vital Signs Temp Pulse Resp BP Pulse Ox 05/09/21 03:30 97.1 F 75 16 131/67 100 05/09/21 00:00 97.7 F 75 18 124/69 100 - Problem List & Annotations (1) S/P gastric bypass SNOMED Code(s): 339526739, 886482988, 272962125, 240832674 Code(s): Z98.84 - BARIATRIC SURGERY STATUS Status: Chronic Current Visit: Yes (2) SBO (small bowel obstruction) SNOMED Code(s): 726506101 Code(s): K56.609 - UNSP INTESTNL OBST, UNSP TO PARTIAL VERSUS COMPLETE OBST Status: Acute Current Visit: No - Problem List Review Problem List Initiated/Reviewed/Updated: Yes - My Orders Last 24 Hours: My Active Orders 05/08/21 Lunch Nothing per Oral Now Diet [DIET] 05/08/21 12:11 Height and Weight [RC] DAILY Oxygen Therapy [RC] PRN Up ad Paulette [RC] ASDIRECTED VTE/DVT Education [RC] Per Unit Routine Vital Signs [RC] Q4H Ondansetron [Zofran] 4 mg IVPUSH Q4H PRN Sodium Chloride 0.9% [Saline Flush] 10 ml FLUSH ASDIRECTED PRN Peripheral IV Insertion Adult [OM.PC] Routine Resuscitation Status Routine 05/08/21 12:12 Intake and Output [RC] 06,14,05/08/21 12:13 Sequential Compression Device [OM.PC] Per Unit Routine 05/08/21 12:15 Sodium Chloride 0.9% [Normal Saline] 1,000 ml IV ASDIRECTED 05/08/21 13:30 Enoxaparin [Lovenox] 40 mg SUBCUT Q24H - Plan Plan:: 1. Dr. Bee to reconsult. 2. Encouraged patient to ambulate 3. Continue nothing by mouth and continue NG tube for now.
[2021-05-09] MEDS ORDERED: Ketorolac 30 MG/ML SDV IVPUSH ONE (12:10)
--- NOTE | 2021-05-09 13:24 | CONS ---
DATE OF CONSULTATION: 05/09/2021 HISTORY OF PRESENT ILLNESS: This 60-year-old female seen in consultation from Dr. Mcclellan for evaluation of bowel obstruction. She was admitted yesterday with a 3-day history of abdominal pain and lack of bowel movements or flatus. She has a history of gastric bypass surgery approximately 20 years ago and has had several previous small bowel obstructions which have responded to conservative measures in the past. CT scan was obtained and reviewed. There is a chronically dilated loop of small bowel. This was reviewed with and transition point appears to be at an anastomosis. No free air was present. Since hospitalization, patient has remained afebrile. Her pain and distention are less today. Nasogastric tube is in place and has no return. I repositioned this and checked a KUB and NG tube is in the stomach and well positioned. KUB also shows that the contrast from yesterday's CT scan is now in the colon indicating things are moving through. Laboratory evaluation is reviewed. She had normal WBC yesterday and again today. PHYSICAL EXAMINATION: On exam, her abdomen is soft, distended, and mildly tender diffusely. No masses are present. ASSESSMENT: Partial small-bowel obstruction. PLAN: Findings reviewed with Dr. Mcclellan. I will keep her at bowel rest and IV hydration. Hopefully, this will gradually resolve as it has in the past. I recommend that she meet with one of the bariatric surgeons in [place] to discuss possible surgical intervention since this seems to be a chronic recurrent problem for her. /[id number] SIMON/JOCELIN HOPSON
[2021-05-09] MEDS: Enoxaparin 40 MG/0.4 ML Syringe SUBCUT SCH (14:02)
--- NOTE | 2021-05-09 14:18 | CR ---
INDICATION: Check NG position. ABDOMEN, ONE VIEW: Single portable upright view of the abdomen was obtained and revealed oral contrast within the large bowel at this time. No free air was noted under the hemidiaphragm leaves. The distended loops of small bowel in the proximal jejunum area are no longer visualized. Nasogastric tube is noted in place with its tip in the gastric fundus, but in adequate position. No consolidating pneumonia or definite effusion was seen. The heart did not appear enlarged. The aorta is calcified in the arch area. IMPRESSION: Satisfactory position nasogastric tube. Report was given in person to Dr. Bee soon after the examination was completed. ABHILASHD
[2021-05-09] MEDS ORDERED: LORazepam 2 MG/ML SDV IVPUSH ONE (22:00)
[2021-05-10] MEDS: HYDROmorphone 2 MG/ML SDV IVPUSH PRN ×5 (00:41→20:55)
[2021-05-10] MEDS: Sodium Chloride 0.9% 1,000 ML IV SCH ×3 (05:00→20:30)
[2021-05-10] MEDS ORDERED: Dextrose 5%-0.9% NaCl 1,000 ML IV SCH (07:05)
--- NOTE | 2021-05-10 08:12 | PCM.PN ---
- General Info Date of Service: 05/10/21 Admission Dx/Problem (Free Text): Patient states she feels better today and she is passing some gas. Abdominal pain is improved. No nausea, vomiting, fevers or chills. - Patient Data Vitals - Most Recent: Last Vital Signs Temp 98.1 F 05/10/21 05:00 Pulse 93 05/10/21 05:00 Resp 18 05/10/21 05:00 BP 156/88 H 05/10/21 05:00 Pulse Ox 94 L 05/10/21 05:00 Weight - Most Recent: 195 lb 11.2 oz I&O - Last 24 Hours: Intake & Output 05/09/21 05/10/21 05/10/21 22:59 06:59 14:59 Intake Total 2050 1325 Output Total 850 1125 Balance 1200 200 Lab Results Last 24 Hours: Laboratory Results - last 24 hr 05/10/21 05/10/21 Range/Units 06:20 06:20 WBC 3.6 (3.0-10.3) x10-3/uL RBC 3.87 (3.60-5.20) x10(6)uL Hgb 12.0 (11.4-15.5) g/dL Hct 37.5 (34.2-48.2) % MCV 96.9 (76.7-100.5) fL MCH 31.0 (23.9-33.9) pg MCHC 32.0 (31.9-34.8) g/dL RDW 13.2 (12.3-16.5) % Plt Count 272 (151-488) x10(3)uL MPV 6.3 L (7.1-12.4) fL Neut % (Auto) 67.2 (30.8-76.2) % Lymph % (Auto) 21.0 (18.4-52.1) % [place] % (Auto) 9.9 (4.4-15.7) % Eos % (Auto) 1.7 (0.6-8.1) % Baso % (Auto) 0.2 (0.2-1.5) % Neut # (Auto) 2.4 (1.5-6.3) x10-3/uL Lymph # (Auto) 0.8 L (1.0-4.4) x10-3/uL [place] # (Auto) 0.4 (0.3-1.0) x10-3/uL Eos # (Auto) 0.1 (0.0-0.8) x10-3/uL Baso # (Auto) 0.0 (0.0-0.1) x10-3/uL Sodium 143 (135-145) mmol/L Potassium 4.1 (3.5-5.3) mmol/L Chloride 108 (100-110) mmol/L Carbon Dioxide 24 (21-32) mmol/L BUN 6 L (7-18) mg/dL Creatinine 0.5 L (0.55-1.02) mg/dL Est Cr Clr Drug Dosing 109.21 mL/min Estimated GFR (MDRD) > 60 (>60) BUN/Creatinine Ratio 12.0 (9-20) Glucose 67 L (80-116) mg/dL Calcium 8.0 L (8.6-10.2) mg/dL Total Bilirubin 0.4 (0.1-1.3) mg/dL AST 24 D (5-25) IU/L ALT 19 D (12-36) U/L Alkaline Phosphatase 90 (56-112) IU/L Total Protein 6.0 (6.0-8.0) g/dL Albumin 2.7 L (3.2-4.6) g/dL Globulin 3.3 g/dL Albumin/Globulin Ratio 0.8 Med Orders - Current: Current Medications Enoxaparin Sodium (Enoxaparin 40 Mg/0.4 Ml Syringe) 40 mg SUBCUT Q24H [facility] Last Admin: 05/09/21 14:02 Dose: 40 mg Documented by: Hydromorphone HCl (Hydromorphone 2 Mg/Ml Sdv) 1 mg IVPUSH Q4H PRN PRN Reason: Breakthrough Pain Last Admin: 05/10/21 06:39 Dose: 1 mg Documented by: Dextrose/Sodium Chloride (Dextrose 5%-Normal Saline) 1,000 mls @ 150 mls/hr IV ASDIRECTED [facility] Last Admin: 05/10/21 07:15 Dose: 150 mls/hr Documented by: Ondansetron HCl (Ondansetron 4 Mg/2 Ml Sdv) 4 mg IVPUSH Q4H PRN PRN Reason: Nausea/Vomiting Last Admin: 05/09/21 09:39 Dose: 4 mg Documented by: Sodium Chloride (Sodium Chloride 0.9% 10 Ml Syringe) 10 ml FLUSH ASDIRECTED PRN PRN Reason: Keep Vein Open Last Admin: 05/09/21 22:14 Dose: 10 ml Documented by: Discontinued Medications Diatrizoate Meglum/Diatrizoate Sod (Diatrizoate Meglumine/Diatrizoate Sodium 37% 30 Ml Bottle) 30 ml PO . DIRECTED ONE Stop: 05/08/21 13:48 Last Admin: 05/08/21 14:36 Dose: 30 ml Documented by: Sodium Chloride (Normal Saline) 1,000 mls @ 150 mls/hr IV ASDIRECTED [facility] Last Admin: 05/10/21 05:00 Dose: 150 mls/hr Documented by: Iopamidol (Iopamidol 755 Mg/Ml 100 Ml Bottle) 100 ml IV . DIRECTED ONE Stop: 05/08/21 13:48 Last Admin: 05/08/21 14:36 Dose: 100 ml Documented by: Ketorolac Tromethamine (Ketorolac 30 Mg/Ml Sdv) 30 mg IVPUSH ONETIME ONE Stop: 05/09/21 12:11 Last Admin: 05/09/21 12:30 Dose: 30 mg Documented by: Lorazepam (Lorazepam 2 Mg/Ml Sdv) 0.25 mg IVPUSH ONETIME ONE Stop: 05/09/21 22:01 Last Admin: 05/09/21 22:11 Dose: 0.25 mg Documented by: Morphine Sulfate (Morphine 2 Mg/Ml Syringe) 2 mg IVPUSH Q2H PRN PRN Reason: Pain (severe 7-10) Last Admin: 05/08/21 17:05 Dose: 2 mg Documented by: - Exam General: Alert, Oriented, Cooperative Lungs: Normal Respiratory Effort GI/Abdominal Exam: Normal Bowel Sounds, Non-Tender, No Distention - Patient Data Lab Results Last 24 hrs: Laboratory Results - last 24 hr 05/10/21 05/10/21 Range/Units 06:20 06:20 WBC 3.6 (3.0-10.3) x10-3/uL RBC 3.87 (3.60-5.20) x10(6)uL Hgb 12.0 (11.4-15.5) g/dL Hct 37.5 (34.2-48.2) % MCV 96.9 (76.7-100.5) fL MCH 31.0 (23.9-33.9) pg MCHC 32.0 (31.9-34.8) g/dL RDW 13.2 (12.3-16.5) % Plt Count 272 (151-488) x10(3)uL MPV 6.3 L (7.1-12.4) fL Neut % (Auto) 67.2 (30.8-76.2) % Lymph % (Auto) 21.0 (18.4-52.1) % [place] % (Auto) 9.9 (4.4-15.7) % Eos % (Auto) 1.7 (0.6-8.1) % Baso % (Auto) 0.2 (0.2-1.5) % Neut # (Auto) 2.4 (1.5-6.3) x10-3/uL Lymph # (Auto) 0.8 L (1.0-4.4) x10-3/uL [place] # (Auto) 0.4 (0.3-1.0) x10-3/uL Eos # (Auto) 0.1 (0.0-0.8) x10-3/uL Baso # (Auto) 0.0 (0.0-0.1) x10-3/uL Sodium 143 (135-145) mmol/L Potassium 4.1 (3.5-5.3) mmol/L Chloride 108 (100-110) mmol/L Carbon Dioxide 24 (21-32) mmol/L BUN 6 L (7-18) mg/dL Creatinine 0.5 L (0.55-1.02) mg/dL Est Cr Clr Drug Dosing 109.21 mL/min Estimated GFR (MDRD) > 60 (>60) BUN/Creatinine Ratio 12.0 (9-20) Glucose 67 L (80-116) mg/dL Calcium 8.0 L (8.6-10.2) mg/dL Total Bilirubin 0.4 (0.1-1.3) mg/dL AST 24 D (5-25) IU/L ALT 19 D (12-36) U/L Alkaline Phosphatase 90 (56-112) IU/L Total Protein 6.0 (6.0-8.0) g/dL Albumin 2.7 L (3.2-4.6) g/dL Globulin 3.3 g/dL Albumin/Globulin Ratio 0.8 Result Diagrams: 05/10/21 06:20 05/10/21 06:20 Sepsis Event Note - Evaluation Sepsis Screening Result: No Definite Risk - Focused Exam Vital Signs: Vital Signs Temp Pulse Resp BP Pulse Ox 05/10/21 05:00 98.1 F 93 18 156/88 H 94 L 05/10/21 00:30 97.5 F 95 18 160/90 H 96 - Problem List & Annotations (1) S/P gastric bypass SNOMED Code(s): 103501447, 574002868, 668989169, 402226728 Code(s): Z98.84 - BARIATRIC SURGERY STATUS Status: Chronic Current Visit: Yes (2) SBO (small bowel obstruction) SNOMED Code(s): 304808827 Code(s): K56.609 - UNSP INTESTNL OBST, UNSP TO PARTIAL VERSUS COMPLETE OBST Status: Acute Current Visit: No - Problem List Review Problem List Initiated/Reviewed/Updated: Yes - My Orders Last 24 Hours: My Active Orders 05/09/21 10:18 Notify Provider Consults [RC] ASDIRECTED Consult to Physician [CONS] Routine - Plan Plan:: 1. Reviewed Dr. Bee note. 2. Clamp the NG for 4 hours and then check residuals. If it's under 150 mL then consider DC NG tube. 3. Patient's urine is dark some increase her fluids to 250 cc an hour 4 hours and go back to 125 mL an hour.
[2021-05-10] MEDS: Sodium Chloride 0.9% 10 ML Syringe FLUSH PRN ×2 (10:46→22:15)
[2021-05-10] MEDS: Enoxaparin 40 MG/0.4 ML Syringe SUBCUT SCH (13:35)
[2021-05-10] MEDS: Metoprolol Tartrate 50 MG Tab PO SCH ×2 (18:47→21:06)
[2021-05-10] MEDS: Metoprolol Tartrate 50 MG Tab ONE (18:47)
[2021-05-10] MEDS ORDERED: Labetalol 20 MG/4 ML Syringe IVPUSH ONE (21:15)
[2021-05-10] MEDS ORDERED: LORazepam 2 MG/ML SDV IVPUSH ONE (21:16)
[2021-05-11] MEDS: HYDROmorphone 2 MG/ML SDV IVPUSH PRN (02:51)
[2021-05-11] MEDS: Sodium Chloride 0.9% 1,000 ML IV SCH (04:43)
[2021-05-11] MEDS: Metoprolol Tartrate 50 MG Tab ONE (08:04)
[2021-05-11] MEDS: Metoprolol Tartrate 50 MG Tab PO SCH ×2 (08:08→21:14)
[2021-05-11] MEDS ORDERED: ClonazePAM 0.5 MG Tab PO PRN (08:15)
[2021-05-11] MEDS ORDERED: Acetaminophen/HYDROcodone 325-10 MG Tab PO PRN (08:15)
[2021-05-11] MEDS ORDERED: LORazepam 1 MG Tab PO PRN (08:15)
--- NOTE | 2021-05-11 08:15 | PCM.PN ---
- General Info Date of Service: 05/11/21 Admission Dx/Problem (Free Text): Patient states she's starting a little bit of clear liquids and she is tolerating. She is a little bit of left upper quadrant abdominal pain. She d enies distention, leg swelling, fevers, chills. She says at home she's had some night sweats and that's continue with aspirin going on for quite some time. She says she is passing a little bit more gas but has not had any stool. - Patient Data Vitals - Most Recent: Last Vital Signs Temp 97.3 F 05/11/21 03:00 Pulse 64 05/11/21 08:08 Resp 16 05/11/21 03:00 BP 182/81 H 05/11/21 08:11 Pulse Ox 98 05/11/21 03:00 Weight - Most Recent: 204 lb 5 oz I&O - Last 24 Hours: Intake & Output 05/10/21 05/11/21 05/11/21 22:59 06:59 14:59 Intake Total 2672 1100 Output Total 450 1600 Balance 2222 -500 Med Orders - Current: Current Medications Enoxaparin Sodium (Enoxaparin 40 Mg/0.4 Ml Syringe) 40 mg SUBCUT Q24H [facility] Last Admin: 05/10/21 13:35 Dose: 40 mg Documented by: Hydromorphone HCl (Hydromorphone 2 Mg/Ml Sdv) 1 mg IVPUSH Q4H PRN PRN Reason: Breakthrough Pain Last Admin: 05/11/21 02:51 Dose: 1 mg Documented by: Losartan Potassium (Losartan 50 Mg Tab) 50 mg PO DAILY [facility] Last Admin: 05/11/21 08:11 Dose: 50 mg Documented by: Metoprolol Tartrate (Metoprolol Tartrate 50 Mg Tab) 50 mg PO BID [facility] Last Admin: 05/11/21 08:08 Dose: 50 mg Documented by: Ondansetron HCl (Ondansetron 4 Mg/2 Ml Sdv) 4 mg IVPUSH Q4H PRN PRN Reason: Nausea/Vomiting Last Admin: 05/09/21 09:39 Dose: 4 mg Documented by: Sodium Chloride (Sodium Chloride 0.9% 10 Ml Syringe) 10 ml FLUSH ASDIRECTED PRN PRN Reason: Keep Vein Open Last Admin: 05/10/21 22:15 Dose: 10 ml Documented by: Discontinued Medications Diatrizoate Meglum/Diatrizoate Sod (Diatrizoate Meglumine/Diatrizoate Sodium 37% 30 Ml Bottle) 30 ml PO . DIRECTED ONE Stop: 05/08/21 13:48 Last Admin: 05/08/21 14:36 Dose: 30 ml Documented by: Sodium Chloride (Normal Saline) 1,000 mls @ 150 mls/hr IV ASDIRECTED [facility] Last Admin: 05/10/21 05:00 Dose: 150 mls/hr Documented by: Dextrose/Sodium Chloride (Dextrose 5%-Normal Saline) 1,000 mls @ 250 mls/hr IV ASDIRECTED [facility] Last Admin: 05/10/21 07:15 Dose: 150 mls/hr Documented by: Sodium Chloride (Normal Saline) 1,000 mls @ 125 mls/hr IV ASDIRECTED [facility] Last Admin: 05/11/21 04:43 Dose: 125 mls/hr Documented by: Iopamidol (Iopamidol 755 Mg/Ml 100 Ml Bottle) 100 ml IV . DIRECTED ONE Stop: 05/08/21 13:48 Last Admin: 05/08/21 14:36 Dose: 100 ml Documented by: Ketorolac Tromethamine (Ketorolac 30 Mg/Ml Sdv) 30 mg IVPUSH ONETIME ONE Stop: 05/09/21 12:11 Last Admin: 05/09/21 12:30 Dose: 30 mg Documented by: Labetalol HCl (Labetalol 20 Mg/4 Ml Syringe) 10 mg IVPUSH ONETIME ONE; Protocol Stop: 05/10/21 21:16 Last Admin: 05/10/21 21:29 Dose: 10 mg Documented by: Lorazepam (Lorazepam 2 Mg/Ml Sdv) 0.25 mg IVPUSH ONETIME ONE Stop: 05/09/21 22:01 Last Admin: 05/09/21 22:11 Dose: 0.25 mg Documented by: Lorazepam (Lorazepam 2 Mg/Ml Sdv) 0.5 mg IVPUSH ONETIME ONE Stop: 05/10/21 21:17 Last Admin: 05/10/21 22:11 Dose: 0.5 mg Documented by: Metoprolol Tartrate (Metoprolol Tartrate 50 Mg Tab) Confirm Administered Dose 50 mg .ROUTE .STK-MED ONE Stop: 05/10/21 18:43 Last Admin: 05/11/21 08:04 Dose: Not Given Documented by: Morphine Sulfate (Morphine 2 Mg/Ml Syringe) 2 mg IVPUSH Q2H PRN PRN Reason: Pain (severe 7-10) Last Admin: 05/08/21 17:05 Dose: 2 mg Documented by: - Exam General: Alert, Oriented Neck: Supple Lungs: Normal Respiratory Effort GI/Abdominal Exam: Other (Abdomen she is a little mild tenderness left upper quadrant. Rest the abdomen is soft with no distention without pain. Bowel sounds are normal.) - Patient Data Result Diagrams: 05/10/21 06:20 05/10/21 06:20 Sepsis Event Note - Evaluation Sepsis Screening Result: No Definite Risk - Focused Exam Vital Signs: Vital Signs Temp Temp Pulse Pulse Resp BP BP 05/11/21 08:11 182/81 H 05/11/21 08:08 64 182/81 H 05/11/21 04:58 160/90 H 05/11/21 03:00 97.3 F 65 16 173/80 H 05/11/21 00:30 98.1 F 63 18 176/86 H 05/10/21 22:00 170/90 H 05/10/21 21:00 97.7 F 62 18 180/100 H Pulse Ox 05/11/21 08:11 05/11/21 08:08 05/11/21 04:58 05/11/21 03:00 98 05/11/21 00:30 96 05/10/21 22:00 05/10/21 21:00 96 - Problem List & Annotations (1) S/P gastric bypass SNOMED Code(s): 365215710, 201282706, 251342302, 010936816 Code(s): Z98.84 - BARIATRIC SURGERY STATUS Status: Chronic Current Visit: Yes (2) SBO (small bowel obstruction) SNOMED Code(s): 548089464 Code(s): K56.609 - UNSP INTESTNL OBST, UNSP TO PARTIAL VERSUS COMPLETE OBST Status: Acute Current Visit: No - Problem List Review Problem List Initiated/Reviewed/Updated: Yes - My Orders Last 24 Hours: My Active Orders 05/10/21 13:58 Nasogastric Orogastric Tube Removal [OM.PC] Routine 05/10/21 14:13 Communication Order [RC] 08,16,05/10/21 21:00 Metoprolol Tartrate [Lopressor] 50 mg PO BID 05/11/21 Breakfast Clear Liquid Diet [DIET] 05/11/21 08:10 Admission Status [Patient Status] [ADT] Routine 05/11/21 08:12 Convert IV to Saline Lock [OM.PC] Routine 05/11/21 09:00 Losartan [Cozaar] 50 mg PO DAILY - Plan Plan:: 1. Patient is recovering slowly. She was initially on observation care. She's been here over 48 hours so I will change her to inpatient care. I'm proceeding with her oral diet slowly because I do not have surgical coverage and transfer to any tertiary care center right now is almost impossible due to too many patients. 2. Continue clear liquids today and I told her that she can drink as much as she wants. If she does well tonight will go to full liquids. 3. DC IV fluids and saline lock IV. 4. I encourage her to do lots of walking today. 5. Stop IV pain medication and start her oral pain medication today.
[2021-05-11] MEDS: Pantoprazole 40 MG Tab.CR PO SCH (09:00)
[2021-05-11] MEDS ORDERED: Losartan 50 MG Tab PO SCH (09:00)
[2021-05-11] MEDS ORDERED: Non-Formulary Medication 1 Each (Ascorbic Acid [Vitamin C] 250 MG Tablet) PO SCH (09:00)
[2021-05-11] MEDS: Furosemide 20 MG Tab PO SCH (09:00)
[2021-05-11] MEDS: ClonazePAM 1 MG Tab PO SCH (09:00)
[2021-05-11] MEDS: Hydroxychloroquine 200 MG Tab PO SCH (09:22)
[2021-05-11] MEDS: Leflunomide 20 MG Tab PO SCH (09:22)
[2021-05-11] MEDS: busPIRone 15 MG Tab PO SCH ×2 (09:22→20:49)
[2021-05-11] MEDS: Escitalopram 10 MG Tab PO SCH (09:22)
[2021-05-11] MEDS: Ascorbic Acid 500 MG Tab PO SCH (09:23)
[2021-05-11] MEDS: Gabapentin 600 MG Tab PO SCH ×3 (09:23→20:50)
[2021-05-11] MEDS: Folic Acid 1 MG Tab PO SCH (09:23)
[2021-05-11] MEDS: QUEtiapine 25 MG Tab PO SCH ×2 (09:23→21:27)
[2021-05-11] MEDS: Cholecalciferol (Vitamin D3) 25 MCG Tab PO SCH ×2 (09:24→21:14)
[2021-05-11] MEDS: lamoTRIgine 100 MG Tab PO SCH ×2 (09:25→20:50)
[2021-05-11] MEDS: Vitamin B6-pyridOXINE 100 MG Tab PO SCH (09:28)
[2021-05-11] MEDS: Enoxaparin 40 MG/0.4 ML Syringe SUBCUT SCH (13:25)
[2021-05-11] MEDS ORDERED: Losartan 50 MG Tab PO ONE (16:49)
[2021-05-11] MEDS: DOXEPIN 150 MG PO SCH (21:14)
[2021-05-12] MEDS: Pantoprazole 40 MG Tab.CR PO SCH (06:45)
[2021-05-12] MEDS ORDERED: Losartan 50 MG Tab PO SCH (09:00)
--- NOTE | 2021-05-12 09:22 | PCM.PN ---
- General Info Date of Service: 05/12/21 Admission Dx/Problem (Free Text): The patient states she feels better today. So the limited upper left quadrant pain. She says is moving more gas but has not had a stool other than water. - Patient Data Vitals - Most Recent: Last Vital Signs Temp 97.7 F 05/12/21 04:00 Pulse 62 05/12/21 04:00 Resp 18 05/12/21 04:00 BP 153/80 H 05/12/21 04:00 Pulse Ox 94 L 05/12/21 04:00 Weight - Most Recent: 197 lb 4 oz Lab Results Last 24 Hours: Laboratory Results - last 24 hr 05/12/21 Range/Units 07:25 WBC 4.0 (3.0-10.3) x10-3/uL RBC 4.10 (3.60-5.20) x10(6)uL Hgb 12.6 (11.4-15.5) g/dL Hct 38.6 (34.2-48.2) % MCV 94.2 (76.7-100.5) fL MCH 30.9 (23.9-33.9) pg MCHC 32.8 (31.9-34.8) g/dL RDW 13.2 (12.3-16.5) % Plt Count 302 (151-488) x10(3)uL MPV 6.5 L (7.1-12.4) fL Neut % (Auto) 65.9 (30.8-76.2) % Lymph % (Auto) 19.7 (18.4-52.1) % [place] % (Auto) 12.7 (4.4-15.7) % Eos % (Auto) 1.2 (0.6-8.1) % Baso % (Auto) 0.5 (0.2-1.5) % Neut # (Auto) 2.6 (1.5-6.3) x10-3/uL Lymph # (Auto) 0.8 L (1.0-4.4) x10-3/uL [place] # (Auto) 0.5 (0.3-1.0) x10-3/uL Eos # (Auto) 0.0 (0.0-0.8) x10-3/uL Baso # (Auto) 0.0 (0.0-0.1) x10-3/uL Med Orders - Current: Current Medications Hydrocodone Bitart/Acetaminophen (Acetaminophen/Hydrocodone 325-10 Mg Tab) 1 tab PO Q6H PRN PRN Reason: Pain Last Admin: 05/11/21 13:24 Dose: 1 tab Documented by: Ascorbic Acid (Ascorbic Acid 500 Mg Tab) 250 mg PO DAILY [facility] Last Admin: 05/11/21 09:23 Dose: 250 mg Documented by: Buspirone HCl (Buspirone 15 Mg Tab) 45 mg PO BID [facility] Last Admin: 05/11/21 20:49 Dose: 45 mg Documented by: Cholecalciferol (Cholecalciferol (Vitamin D3) 25 Mcg Tab) 50 mcg PO BID [facility] Last Admin: 05/11/21 21:14 Dose: 50 mcg Documented by: Clonazepam (Clonazepam 1 Mg Tab) 1 mg PO DAILY [facility] Last Admin: 05/11/21 09:00 Dose: 1 mg Documented by: Clonazepam (Clonazepam 0.5 Mg Tab) 0.5 mg PO DAILY PRN PRN Reason: Anxiety Enoxaparin Sodium (Enoxaparin 40 Mg/0.4 Ml Syringe) 40 mg SUBCUT Q24H [facility] Last Admin: 05/11/21 13:25 Dose: 40 mg Documented by: Escitalopram Oxalate (Escitalopram 10 Mg Tab) 30 mg PO DAILY [facility] Last Admin: 05/11/21 09:22 Dose: 30 mg Documented by: Folic Acid (Folic Acid 1 Mg Tab) 1 mg PO DAILY [facility] Last Admin: 05/11/21 09:23 Dose: 1 mg Documented by: Furosemide (Furosemide 20 Mg Tab) 20 mg PO DAILY [facility] Last Admin: 05/11/21 09:00 Dose: 20 mg Documented by: Gabapentin (Gabapentin 600 Mg Tab) 600 mg PO TID [facility] Last Admin: 05/11/21 20:50 Dose: 600 mg Documented by: Hydroxychloroquine Sulfate (Hydroxychloroquine 200 Mg Tab) 200 mg PO DAILY [facility] Last Admin: 05/11/21 09:22 Dose: 200 mg Documented by: Hydroxyzine Pamoate (Hydroxyzine Pamoate 50 Mg Cap) 50 mg PO BID PRN PRN Reason: Anxiety Lamotrigine (Lamotrigine 100 Mg Tab) 200 mg PO BID [facility] Last Admin: 05/11/21 20:50 Dose: 200 mg Documented by: Leflunomide (Leflunomide 20 Mg Tab) 10 mg PO DAILY [facility] Last Admin: 05/11/21 09:22 Dose: 10 mg Documented by: Lorazepam (Lorazepam 1 Mg Tab) 1 mg PO Q12H PRN PRN Reason: Anxiety Losartan Potassium (Losartan 100 Mg Tab) 100 mg PO DAILY [facility] Metoprolol Tartrate (Metoprolol Tartrate 50 Mg Tab) 50 mg PO BID [facility] Last Admin: 05/11/21 21:14 Dose: 50 mg Documented by: Ondansetron HCl (Ondansetron 4 Mg/2 Ml Sdv) 4 mg IVPUSH Q4H PRN PRN Reason: Nausea/Vomiting Last Admin: 05/09/21 09:39 Dose: 4 mg Documented by: Pantoprazole Sodium (Pantoprazole 40 Mg Tab.Cr) 40 mg PO ACBREAKFAST [facility] Last Admin: 05/12/21 06:45 Dose: 40 mg Documented by: Doxepin 150 Mg Cap * (Pt Own Med*) 0 each PO BEDTIME [facility] Last Admin: 05/11/21 21:14 Dose: 2 each Documented by: Pyridoxine HCl (Vitamin B6-Pyridoxine 100 Mg Tab) 25 mg PO DAILY [facility] Last Admin: 05/11/21 09:28 Dose: Not Given Documented by: Quetiapine Fumarate (Quetiapine 25 Mg Tab) 25 mg PO DAILY [facility] Last Admin: 05/11/21 09:23 Dose: 25 mg Documented by: Quetiapine Fumarate (Quetiapine 25 Mg Tab) 50 mg PO BEDTIME [facility] Last Admin: 05/11/21 21:27 Dose: 50 mg Documented by: Sodium Chloride (Sodium Chloride 0.9% 10 Ml Syringe) 10 ml FLUSH ASDIRECTED PRN PRN Reason: Keep Vein Open Last Admin: 05/10/21 22:15 Dose: 10 ml Documented by: Discontinued Medications Diatrizoate Meglum/Diatrizoate Sod (Diatrizoate Meglumine/Diatrizoate Sodium 37% 30 Ml Bottle) 30 ml PO . DIRECTED ONE Stop: 05/08/21 13:48 Last Admin: 05/08/21 14:36 Dose: 30 ml Documented by: Hydromorphone HCl (Hydromorphone 2 Mg/Ml Sdv) 1 mg IVPUSH Q4H PRN PRN Reason: Breakthrough Pain Last Admin: 05/11/21 02:51 Dose: 1 mg Documented by: Sodium Chloride (Normal Saline) 1,000 mls @ 150 mls/hr IV ASDIRECTED [facility] Last Admin: 05/10/21 05:00 Dose: 150 mls/hr Documented by: Dextrose/Sodium Chloride (Dextrose 5%-Normal Saline) 1,000 mls @ 250 mls/hr IV ASDIRECTED [facility] Last Admin: 05/10/21 07:15 Dose: 150 mls/hr Documented by: Sodium Chloride (Normal Saline) 1,000 mls @ 125 mls/hr IV ASDIRECTED [facility] Last Admin: 05/11/21 04:43 Dose: 125 mls/hr Documented by: Iopamidol (Iopamidol 755 Mg/Ml 100 Ml Bottle) 100 ml IV . DIRECTED ONE Stop: 05/08/21 13:48 Last Admin: 05/08/21 14:36 Dose: 100 ml Documented by: Ketorolac Tromethamine (Ketorolac 30 Mg/Ml Sdv) 30 mg IVPUSH ONETIME ONE Stop: 05/09/21 12:11 Last Admin: 05/09/21 12:30 Dose: 30 mg Documented by: Labetalol HCl (Labetalol 20 Mg/4 Ml Syringe) 10 mg IVPUSH ONETIME ONE; Protocol Stop: 05/10/21 21:16 Last Admin: 05/10/21 21:29 Dose: 10 mg Documented by: Lamotrigine (Lamotrigine 200 Mg Tab) 200 mg PO BID [facility] Last Admin: 05/11/21 09:27 Dose: Not Given Documented by: Lorazepam (Lorazepam 2 Mg/Ml Sdv) 0.25 mg IVPUSH ONETIME ONE Stop: 05/09/21 22:01 Last Admin: 05/09/21 22:11 Dose: 0.25 mg Documented by: Lorazepam (Lorazepam 2 Mg/Ml Sdv) 0.5 mg IVPUSH ONETIME ONE Stop: 05/10/21 21:17 Last Admin: 05/10/21 22:11 Dose: 0.5 mg Documented by: Losartan Potassium (Losartan 50 Mg Tab) 50 mg PO DAILY [facility] Last Admin: 05/11/21 08:11 Dose: 50 mg Documented by: Losartan Potassium (Losartan 50 Mg Tab) 100 mg PO DAILY [facility] Losartan Potassium (Losartan 50 Mg Tab) 50 mg PO ONETIME ONE Stop: 05/11/21 16:50 Last Admin: 05/11/21 18:49 Dose: 50 mg Documented by: Metoprolol Tartrate (Metoprolol Tartrate 50 Mg Tab) Confirm Administered Dose 50 mg .ROUTE .STK-MED ONE Stop: 05/10/21 18:43 Last Admin: 05/11/21 08:04 Dose: Not Given Documented by: Morphine Sulfate (Morphine 2 Mg/Ml Syringe) 2 mg IVPUSH Q2H PRN PRN Reason: Pain (severe 7-10) Last Admin: 05/08/21 17:05 Dose: 2 mg Documented by: Non-Formulary Medication (Ascorbic Acid [Vitamin C]) 250 mg PO ACBREAKFAST [facility] Quetiapine Fumarate (Quetiapine 50 Mg Tab) 50 mg PO BEDTIME [facility] Last Admin: 05/11/21 22:12 Dose: Not Given Documented by: - Exam General: Alert, Oriented Lungs: Normal Respiratory Effort GI/Abdominal Exam: Other (Abdomen is soft just some very minimal pain left upper quadrant. Bowel sounds normal and no distention.) - Patient Data Lab Results Last 24 hrs: Laboratory Results - last 24 hr 05/12/21 Range/Units 07:25 WBC 4.0 (3.0-10.3) x10-3/uL RBC 4.10 (3.60-5.20) x10(6)uL Hgb 12.6 (11.4-15.5) g/dL Hct 38.6 (34.2-48.2) % MCV 94.2 (76.7-100.5) fL MCH 30.9 (23.9-33.9) pg MCHC 32.8 (31.9-34.8) g/dL RDW 13.2 (12.3-16.5) % Plt Count 302 (151-488) x10(3)uL MPV 6.5 L (7.1-12.4) fL Neut % (Auto) 65.9 (30.8-76.2) % Lymph % (Auto) 19.7 (18.4-52.1) % [place] % (Auto) 12.7 (4.4-15.7) % Eos % (Auto) 1.2 (0.6-8.1) % Baso % (Auto) 0.5 (0.2-1.5) % Neut # (Auto) 2.6 (1.5-6.3) x10-3/uL Lymph # (Auto) 0.8 L (1.0-4.4) x10-3/uL [place] # (Auto) 0.5 (0.3-1.0) x10-3/uL Eos # (Auto) 0.0 (0.0-0.8) x10-3/uL Baso # (Auto) 0.0 (0.0-0.1) x10-3/uL Result Diagrams: 05/12/21 07:25 05/10/21 06:20 Sepsis Event Note - Evaluation Sepsis Screening Result: No Definite Risk - Focused Exam Vital Signs: Vital Signs Temp Pulse Resp BP Pulse Ox 05/12/21 04:00 97.7 F 62 18 153/80 H 94 L - Problem List & Annotations (1) S/P gastric bypass SNOMED Code(s): 566502793, 899054899, 564006642, 685091725 Code(s): Z98.84 - BARIATRIC SURGERY STATUS Status: Chronic Current Visit: Yes (2) SBO (small bowel obstruction) SNOMED Code(s): 216088210 Code(s): K56.609 - UNSP INTESTNL OBST, UNSP TO PARTIAL VERSUS COMPLETE OBST Status: Acute Current Visit: No - Problem List Review Problem List Initiated/Reviewed/Updated: Yes - My Orders Last 24 Hours: My Active Orders 05/11/21 09:00 Ascorbic Acid [Vitamin C] 250 mg PO DAILY Cholecalciferol (Vitamin D3) [Vitamin D3] 50 mcg PO BID ClonazePAM [KlonoPIN] 1 mg PO DAILY Escitalopram [Lexapro] 30 mg PO DAILY Folic Acid 1 mg PO DAILY Furosemide [Lasix] 20 mg PO DAILY Gabapentin [Neurontin] 600 mg PO TID Hydroxychloroquine [Plaquenil] 200 mg PO DAILY Leflunomide [Arava] 10 mg PO DAILY Pantoprazole [ProTONIX] 40 mg PO ACBREAKFAST QUEtiapine [SEROqueL] 25 mg PO DAILY Vitamin B6-pyridOXINE 25 mg PO DAILY busPIRone [Buspar] 45 mg PO BID 05/11/21 09:15 lamoTRIgine 200 mg PO BID 05/11/21 21:00 Patient's Own Medication [Ptom] 0 each PO BEDTIME QUEtiapine [SEROqueL] 50 mg PO BEDTIME 05/12/21 Breakfast Full Liquid Diet [DIET] 05/12/21 07:25 COMPREHENSIVE METABOLIC PN,CMP [CHEM] Routine 05/12/21 09:00 Losartan [Cozaar] 100 mg PO DAILY - Plan Plan:: 1. Advance diet to soft food. 2. Asked Dr. Olson note to follow along since he is back in [facility] and we have a surgeon.
[2021-05-12] MEDS: busPIRone 15 MG Tab PO SCH ×2 (10:14→20:25)
[2021-05-12] MEDS: Leflunomide 20 MG Tab PO SCH (10:14)
[2021-05-12] MEDS: lamoTRIgine 100 MG Tab PO SCH ×2 (10:15→20:26)
[2021-05-12] MEDS: Folic Acid 1 MG Tab PO SCH (10:15)
[2021-05-12] MEDS: Furosemide 20 MG Tab PO SCH (10:15)
[2021-05-12] MEDS: Hydroxychloroquine 200 MG Tab PO SCH (10:16)
[2021-05-12] MEDS: Vitamin B6-pyridOXINE 100 MG Tab PO SCH (10:16)
[2021-05-12] MEDS: Escitalopram 10 MG Tab PO SCH (10:16)
[2021-05-12] MEDS: QUEtiapine 25 MG Tab PO SCH ×2 (10:16→20:25)
[2021-05-12] MEDS: Cholecalciferol (Vitamin D3) 25 MCG Tab PO SCH ×2 (10:17→20:26)
[2021-05-12] MEDS: Ascorbic Acid 500 MG Tab PO SCH (10:17)
[2021-05-12] MEDS: Gabapentin 600 MG Tab PO SCH ×3 (10:29→20:24)
[2021-05-12] MEDS: ClonazePAM 1 MG Tab PO SCH (10:29)
[2021-05-12] MEDS: Losartan 100 MG Tab PO SCH (10:32)
[2021-05-12] MEDS: Metoprolol Tartrate 50 MG Tab PO SCH ×2 (10:32→20:25)
[2021-05-12] MEDS: Enoxaparin 40 MG/0.4 ML Syringe SUBCUT SCH (14:16)
[2021-05-12] MEDS: Sodium Chloride 0.9% 10 ML Syringe FLUSH PRN (14:26)
[2021-05-12] MEDS: DOXEPIN 150 MG PO SCH (20:26)
--- NOTE | 2021-05-12 21:31 | CONS ---
DATE OF CONSULTATION: 05/12/2021 HISTORY OF PRESENT ILLNESS: This 60-year-old female was admitted on 05/08/2021 with some abdominal pain and bloating. CT scan performed at that time indicated findings consistent with a small bowel obstruction. There were some indications on the scan that this may be somewhat of a chronic issue and it might be located at the point of a small bowel anastomosis from previous gastric bypass surgery. Followup x-rays the following day indicated that the dilated loops of small bowel returned normal. While in the hospital here, the patient has improved to the point now where she is tolerating drinking liquids without difficulty and is even eating some light soft foods. She has been passing flatus and passing some water per rectum. The patient does note a history of recurring similar episodes over the last 2 years, estimating this to be the 3rd or 4th episode like this. She does note some intermittent pain in the left side of her abdomen as well. PAST MEDICAL HISTORY: Her past history does include August-en-Y gastric bypass over 20 years ago and she also states that she had surgery for release of small bowel obstruction about 2 years ago and was told at that time that she had extensive adhesions. The patient's past medical history shows other surgeries to include oral surgery including tonsillectomy. She has also had appendectomy, hysterectomy, and multiple back surgeries. MEDICATIONS: Her medications are reviewed and do include Protonix. FAMILY HISTORY: Noncontributory. IMAGING: Results of her CT scan and abdominal x-ray were reviewed. LABORATORY DATA: Laboratory studies were also reviewed and these are unremarkable with no white count elevation while she has been hospitalized. PHYSICAL EXAMINATION: VITAL SIGNS: She is afebrile. Blood pressure is 174/88, pulse 78. GENERAL: The patient is alert, adult female. She is in no acute distress. HEENT: Head is normocephalic. No scleral icterus. HEART: Regular without murmur. LUNGS: Clear. ABDOMEN: Currently soft. She has some mild tenderness to direct palpation in the left mid abdomen. I do not feel any distention, mass, or guarding. EXTREMITIES: Show no obvious deformity. IMPRESSION: Improving small bowel obstruction, question of small bowel narrowing over a long-term basis versus transient obstruction from adhesions. RECOMMENDATION: As the patient is improving, would have her continue with light diet and follow up in the outpatient clinic where once she is feeling better, a small bowel follow-through x-ray can be performed to see if there is any permanent small bowel narrowing. The patient agrees with this plan. /[id number] CODEY/JOCELIN
[2021-05-13] MEDS: Pantoprazole 40 MG Tab.CR PO SCH (06:30)
[2021-05-13] MEDS: Leflunomide 20 MG Tab PO SCH (08:57)
[2021-05-13] MEDS: busPIRone 15 MG Tab PO SCH (08:57)
[2021-05-13] MEDS: Losartan 100 MG Tab PO SCH (08:58)
[2021-05-13] MEDS: Folic Acid 1 MG Tab PO SCH (08:58)
[2021-05-13] MEDS: lamoTRIgine 100 MG Tab PO SCH (08:58)
[2021-05-13] MEDS: ClonazePAM 1 MG Tab PO SCH (08:58)
[2021-05-13] MEDS: Gabapentin 600 MG Tab PO SCH (08:59)
[2021-05-13] MEDS: Escitalopram 10 MG Tab PO SCH (08:59)
[2021-05-13] MEDS: Furosemide 20 MG Tab PO SCH (08:59)
[2021-05-13] MEDS: Metoprolol Tartrate 50 MG Tab PO SCH (08:59)
[2021-05-13] MEDS: Ascorbic Acid 500 MG Tab PO SCH (09:00)
[2021-05-13] MEDS: Hydroxychloroquine 200 MG Tab PO SCH (09:00)
[2021-05-13] MEDS: Cholecalciferol (Vitamin D3) 25 MCG Tab PO SCH (09:00)
[2021-05-13] MEDS: QUEtiapine 25 MG Tab PO SCH (09:00)
[2021-05-13] MEDS: Vitamin B6-pyridOXINE 100 MG Tab PO SCH (09:01)
--- NOTE | 2021-05-13 09:10 | PCM.PN ---
- General Info Date of Service: 05/13/21 Admission Dx/Problem (Free Text): Patient tolerated her food last night has just a little left upper quadrant pain when she eats but it is going through when she is passing gas. He saw her and felt she could go home on a soft diet and recheck with him in 2 weeks. Little bit of nosebleed today which is now under control. - Patient Data Vitals - Most Recent: Last Vital Signs Temp 97.1 F 05/12/21 20:15 Pulse 79 05/13/21 08:59 Resp 16 05/12/21 20:15 BP 150/77 H 05/13/21 08:59 Pulse Ox 93 L 05/12/21 20:15 Weight - Most Recent: 198 lb 14.4 oz I&O - Last 24 Hours: Intake & Output 05/12/21 05/13/21 05/13/21 22:59 06:59 14:59 Intake Total 550 Balance 550 Lab Results Last 24 Hours: Laboratory Results - last 24 hr 05/12/21 Range/Units 07:25 Sodium 145 (135-145) mmol/L Potassium 3.2 L (3.5-5.3) mmol/L Chloride 106 (100-110) mmol/L Carbon Dioxide 33 H (21-32) mmol/L BUN 2 L (7-18) mg/dL Creatinine 0.5 L (0.55-1.02) mg/dL Est Cr Clr Drug Dosing 109.21 mL/min Estimated GFR (MDRD) > 60 (>60) BUN/Creatinine Ratio 4.0 L (9-20) Glucose 96 (80-116) mg/dL Calcium 8.4 L (8.6-10.2) mg/dL Total Bilirubin 0.3 (0.1-1.3) mg/dL AST 25 (5-25) IU/L ALT 22 D (12-36) U/L Alkaline Phosphatase 89 (56-112) IU/L Total Protein 6.4 (6.0-8.0) g/dL Albumin 2.9 L (3.2-4.6) g/dL Globulin 3.5 g/dL Albumin/Globulin Ratio 0.8 Med Orders - Current: Current Medications Hydrocodone Bitart/Acetaminophen (Acetaminophen/Hydrocodone 325-10 Mg Tab) 1 tab PO Q6H PRN PRN Reason: Pain Last Admin: 05/11/21 13:24 Dose: 1 tab Documented by: Ascorbic Acid (Ascorbic Acid 500 Mg Tab) 250 mg PO DAILY [facility] Last Admin: 05/13/21 09:00 Dose: 250 mg Documented by: Buspirone HCl (Buspirone 15 Mg Tab) 45 mg PO BID [facility] Last Admin: 05/13/21 08:57 Dose: 45 mg Documented by: Cholecalciferol (Cholecalciferol (Vitamin D3) 25 Mcg Tab) 50 mcg PO BID [facility] Last Admin: 05/13/21 09:00 Dose: 50 mcg Documented by: Clonazepam (Clonazepam 1 Mg Tab) 1 mg PO DAILY [facility] Last Admin: 05/13/21 08:58 Dose: 1 mg Documented by: Clonazepam (Clonazepam 0.5 Mg Tab) 0.5 mg PO DAILY PRN PRN Reason: Anxiety Last Admin: 05/12/21 15:12 Dose: 0.5 mg Documented by: Enoxaparin Sodium (Enoxaparin 40 Mg/0.4 Ml Syringe) 40 mg SUBCUT Q24H [facility] Last Admin: 05/12/21 14:16 Dose: 40 mg Documented by: Escitalopram Oxalate (Escitalopram 10 Mg Tab) 30 mg PO DAILY [facility] Last Admin: 05/13/21 08:59 Dose: 30 mg Documented by: Folic Acid (Folic Acid 1 Mg Tab) 1 mg PO DAILY [facility] Last Admin: 05/13/21 08:58 Dose: 1 mg Documented by: Furosemide (Furosemide 20 Mg Tab) 20 mg PO DAILY [facility] Last Admin: 05/13/21 08:59 Dose: 20 mg Documented by: Gabapentin (Gabapentin 600 Mg Tab) 600 mg PO TID [facility] Last Admin: 05/13/21 08:59 Dose: 600 mg Documented by: Hydroxychloroquine Sulfate (Hydroxychloroquine 200 Mg Tab) 200 mg PO DAILY [facility] Last Admin: 05/13/21 09:00 Dose: 200 mg Documented by: Hydroxyzine Pamoate (Hydroxyzine Pamoate 50 Mg Cap) 50 mg PO BID PRN PRN Reason: Anxiety Lamotrigine (Lamotrigine 100 Mg Tab) 200 mg PO BID [facility] Last Admin: 05/13/21 08:58 Dose: 200 mg Documented by: Leflunomide (Leflunomide 20 Mg Tab) 10 mg PO DAILY [facility] Last Admin: 05/13/21 08:57 Dose: 10 mg Documented by: Lorazepam (Lorazepam 1 Mg Tab) 1 mg PO Q12H PRN PRN Reason: Anxiety Last Admin: 05/12/21 20:24 Dose: 1 mg Documented by: Losartan Potassium (Losartan 100 Mg Tab) 100 mg PO DAILY [facility] Last Admin: 05/13/21 08:58 Dose: 100 mg Documented by: Metoprolol Tartrate (Metoprolol Tartrate 50 Mg Tab) 50 mg PO BID [facility] Last Admin: 05/13/21 08:59 Dose: 50 mg Documented by: Ondansetron HCl (Ondansetron 4 Mg/2 Ml Sdv) 4 mg IVPUSH Q4H PRN PRN Reason: Nausea/Vomiting Last Admin: 05/09/21 09:39 Dose: 4 mg Documented by: Pantoprazole Sodium (Pantoprazole 40 Mg Tab.Cr) 40 mg PO ACBREAKFAST [facility] Last Admin: 05/13/21 06:30 Dose: 40 mg Documented by: Doxepin 150 Mg Cap * (Pt Own Med*) 0 each PO BEDTIME [facility] Last Admin: 05/12/21 20:26 Dose: 150 each Documented by: Pyridoxine HCl (Vitamin B6-Pyridoxine 100 Mg Tab) 25 mg PO DAILY [facility] Last Admin: 05/13/21 09:01 Dose: 25 mg Documented by: Quetiapine Fumarate (Quetiapine 25 Mg Tab) 25 mg PO DAILY [facility] Last Admin: 05/13/21 09:00 Dose: 25 mg Documented by: Quetiapine Fumarate (Quetiapine 25 Mg Tab) 50 mg PO BEDTIME [facility] Last Admin: 05/12/21 20:25 Dose: 50 mg Documented by: Sodium Chloride (Sodium Chloride 0.9% 10 Ml Syringe) 10 ml FLUSH ASDIRECTED PRN PRN Reason: Keep Vein Open Last Admin: 05/12/21 14:26 Dose: 10 ml Documented by: Discontinued Medications Diatrizoate Meglum/Diatrizoate Sod (Diatrizoate Meglumine/Diatrizoate Sodium 37% 30 Ml Bottle) 30 ml PO . DIRECTED ONE Stop: 05/08/21 13:48 Last Admin: 05/08/21 14:36 Dose: 30 ml Documented by: Hydromorphone HCl (Hydromorphone 2 Mg/Ml Sdv) 1 mg IVPUSH Q4H PRN PRN Reason: Breakthrough Pain Last Admin: 05/11/21 02:51 Dose: 1 mg Documented by: Sodium Chloride (Normal Saline) 1,000 mls @ 150 mls/hr IV ASDIRECTED [facility] Last Admin: 05/10/21 05:00 Dose: 150 mls/hr Documented by: Dextrose/Sodium Chloride (Dextrose 5%-Normal Saline) 1,000 mls @ 250 mls/hr IV ASDIRECTED [facility] Last Admin: 05/10/21 07:15 Dose: 150 mls/hr Documented by: Sodium Chloride (Normal Saline) 1,000 mls @ 125 mls/hr IV ASDIRECTED [facility] Last Admin: 05/11/21 04:43 Dose: 125 mls/hr Documented by: Iopamidol (Iopamidol 755 Mg/Ml 100 Ml Bottle) 100 ml IV . DIRECTED ONE Stop: 05/08/21 13:48 Last Admin: 05/08/21 14:36 Dose: 100 ml Documented by: Ketorolac Tromethamine (Ketorolac 30 Mg/Ml Sdv) 30 mg IVPUSH ONETIME ONE Stop: 05/09/21 12:11 Last Admin: 05/09/21 12:30 Dose: 30 mg Documented by: Labetalol HCl (Labetalol 20 Mg/4 Ml Syringe) 10 mg IVPUSH ONETIME ONE; Protocol Stop: 05/10/21 21:16 Last Admin: 05/10/21 21:29 Dose: 10 mg Documented by: Lamotrigine (Lamotrigine 200 Mg Tab) 200 mg PO BID [facility] Last Admin: 05/11/21 09:27 Dose: Not Given Documented by: Lorazepam (Lorazepam 2 Mg/Ml Sdv) 0.25 mg IVPUSH ONETIME ONE Stop: 05/09/21 22:01 Last Admin: 05/09/21 22:11 Dose: 0.25 mg Documented by: Lorazepam (Lorazepam 2 Mg/Ml Sdv) 0.5 mg IVPUSH ONETIME ONE Stop: 05/10/21 21:17 Last Admin: 05/10/21 22:11 Dose: 0.5 mg Documented by: Losartan Potassium (Losartan 50 Mg Tab) 50 mg PO DAILY [facility] Last Admin: 05/11/21 08:11 Dose: 50 mg Documented by: Losartan Potassium (Losartan 50 Mg Tab) 100 mg PO DAILY [facility] Losartan Potassium (Losartan 50 Mg Tab) 50 mg PO ONETIME ONE Stop: 05/11/21 16:50 Last Admin: 05/11/21 18:49 Dose: 50 mg Documented by: Metoprolol Tartrate (Metoprolol Tartrate 50 Mg Tab) Confirm Administered Dose 50 mg .ROUTE .STK-MED ONE Stop: 05/10/21 18:43 Last Admin: 05/11/21 08:04 Dose: Not Given Documented by: Morphine Sulfate (Morphine 2 Mg/Ml Syringe) 2 mg IVPUSH Q2H PRN PRN Reason: Pain (severe 7-10) Last Admin: 05/08/21 17:05 Dose: 2 mg Documented by: Non-Formulary Medication (Ascorbic Acid [Vitamin C]) 250 mg PO ACBREAKFAST [facility] Quetiapine Fumarate (Quetiapine 50 Mg Tab) 50 mg PO BEDTIME [facility] Last Admin: 05/11/21 22:12 Dose: Not Given Documented by: - Exam General: Alert, Oriented, Cooperative Neck: Supple - Patient Data Lab Results Last 24 hrs: Laboratory Results - last 24 hr 05/12/21 Range/Units 07:25 Sodium 145 (135-145) mmol/L Potassium 3.2 L (3.5-5.3) mmol/L Chloride 106 (100-110) mmol/L Carbon Dioxide 33 H (21-32) mmol/L BUN 2 L (7-18) mg/dL Creatinine 0.5 L (0.55-1.02) mg/dL Est Cr Clr Drug Dosing 109.21 mL/min Estimated GFR (MDRD) > 60 (>60) BUN/Creatinine Ratio 4.0 L (9-20) Glucose 96 (80-116) mg/dL Calcium 8.4 L (8.6-10.2) mg/dL Total Bilirubin 0.3 (0.1-1.3) mg/dL AST 25 (5-25) IU/L ALT 22 D (12-36) U/L Alkaline Phosphatase 89 (56-112) IU/L Total Protein 6.4 (6.0-8.0) g/dL Albumin 2.9 L (3.2-4.6) g/dL Globulin 3.5 g/dL Albumin/Globulin Ratio 0.8 Result Diagrams: 05/12/21 07:25 05/12/21 07:25 Sepsis Event Note - Evaluation Sepsis Screening Result: No Definite Risk - Focused Exam Vital Signs: Vital Signs Pulse BP 05/13/21 08:59 79 150/77 H 05/13/21 08:58 150/77 H - Problem List & Annotations (1) S/P gastric bypass SNOMED Code(s): 059848467, 474934611, 120476935, 782858088 Code(s): Z98.84 - BARIATRIC SURGERY STATUS Status: Chronic Current Visit: Yes (2) SBO (small bowel obstruction) SNOMED Code(s): 646929306 Code(s): K56.609 - UNSP INTESTNL OBST, UNSP TO PARTIAL VERSUS COMPLETE OBST Status: Acute Current Visit: No - Problem List Review Problem List Initiated/Reviewed/Updated: No - My Orders Last 24 Hours: My Active Orders 05/12/21 09:00 Losartan [Cozaar] 100 mg PO DAILY 05/12/21 09:22 Consult to Physician [CONS] Routine 05/12/21 09:23 Notify Provider Consults [RC] ASDIRECTED 05/12/21 Lunch Soft Diet [DIET] 05/13/21 09:09 Ready for Discharge [RC] PER UNIT ROUTINE - Plan Plan:: 1. disCharge to home on soft diet
--- NOTE | 2021-05-13 09:13 | PCM.DCSUM1 ---
Discharge Summary - Hospital Course Free Text/Narrative:: Hospital course-patient was admitted and put on n.p.o. and IV fluids. NG was placed and she did not get much residual back. She did have a gastric bypass in the past. Kept it for almost 48 hours and then we clamped it and he had no residual so we pulled it. Patient stomach went down and we slowly introduce clear liquids. She did see surgery who could not do anything because there is nobody here over the weekend and they felt that she probably needed to see somebody that is bariatric surgery in the future. We slowly introduced clear liquids then full liquids then soft food and she was able to tolerate. She had a little bit of left upper quadrant pain. None the surgeon came by felt she should be seen in 2 weeks and get a small bowel follow-through. We will discharge her home on soft food. Brief History: Ms Polanco is a 60 yo female with abdominal pain since Wednesday. Associated with nausea. Poorly localized,but initially in the epigastrium. 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 She also has a h/o gastric bypass 20 years ago,as well as appendectomy & gall bladder surgery. Diagnosis: Stroke: No - Discharge Data Discharge Date: 05/13/21 Discharge Disposition: Home, Self-Care 01 Condition: Good - Referral to Home Health Primary Care Physician: Arben Mcclellan MD - Discharge Diagnosis/Problem(s) (1) S/P gastric bypass SNOMED Code(s): 222509267, [id number], [id number], [id number] ICD Code: Z98.84 - BARIATRIC SURGERY STATUS Status: Chronic Current Visit: Yes (2) SBO (small bowel obstruction) SNOMED Code(s): 479969290 ICD Code: K56.609 - UNSP INTESTNL OBST, UNSP TO PARTIAL VERSUS COMPLETE OBST Status: Acute Current Visit: No - Patient Summary/Data Consults: Consultations 05/09/21 10:18 Consult to Physician [CONS] Routine Consulting Provider: Konstantin Bee Courtesy Call Completed to Consulting Physician: Yes 05/12/21 09:22 Consult to Physician [CONS] Routine Consulting Provider: Demetrio Nuñez Courtesy Call Completed to Consulting Physician: Yes - Patient Instructions Diet: GI Soft/Low Residue/Low Fiber Activity: Apply Ice Driving: May Drive Today Showering/Bathing: May Shower Notify Provider of: Fever, Increased Pain, Nausea and/or Vomiting Other/Special Instructions: 1. Soft diet. 2. Recheck with Dr. Mcclellan in 1 week. Repair check with Dr. Olson in 2 weeks. - Discharge Plan Home Medications: Home Meds Acetaminophen/HYDROcodone [[place] 325-10 MG] 1 tab PO Q6H PRN 09/27/19 [History] Doxepin HCl 300 mg PO BEDTIME 09/27/19 [History] Escitalopram [Lexapro] 30 mg PO DAILY 09/27/19 [History] Folic Acid 1 mg PO DAILY 09/27/19 [History] Furosemide 20 mg PO DAILY 09/27/19 [History] Gabapentin [Neurontin] 600 mg PO TID 09/27/19 [History] Pantoprazole [ProTONIX] 40 mg PO DAILY 09/27/19 [History] busPIRone HCl [busPIRone] 45 mg PO BID 09/27/19 [History] hydrOXYzine pamoate [Hydroxyzine Pamoate] 50 mg PO BID PRN 09/27/19 [History] lamoTRIgine 200 mg PO BID 09/27/19 [History] LORazepam [Ativan] 1 mg PO Q12H PRN #10 tab 05/28/20 [Rx] Ascorbic Acid [Vitamin C] 250 mg PO DAILY 05/08/21 [History] Cholecalciferol (Vitamin D3) [Vitamin D3] 50 mcg PO BID 05/08/21 [History] ClonazePAM [KlonoPIN] 0.5 mg PO DAILY PRN 05/08/21 [History] Hydroxychloroquine Sulfate [Plaquenil] 200 mg PO DAILY 05/08/21 [History] Leflunomide 10 mg PO DAILY 05/08/21 [History] Losartan [Cozaar] 50 mg PO DAILY 05/08/21 [History] Metoprolol Tartrate 50 mg PO BID 05/08/21 [History] Pyridoxine HCl [Vitamin B-6] 25 mg PO DAILY 05/08/21 [History] QUEtiapine [SEROquel] 25 mg PO DAILY 05/08/21 [History] QUEtiapine [SEROquel] 50 mg PO BEDTIME 05/08/21 [History] clonazePAM [Clonazepam] 1 mg PO DAILY 05/08/21 [History] - Discharge Summary/Plan Comment DC Time >30 min.: Yes Total # of Minutes for Discharge Time: 15 - Patient Data Vitals - Most Recent: Last Vital Signs Temp 97.1 F 05/12/21 20:15 Pulse 79 05/13/21 08:59 Resp 16 05/12/21 20:15 BP 150/77 H 05/13/21 08:59 Pulse Ox 93 L 05/12/21 20:15 Weight - Most Recent: 198 lb 14.4 oz I&O - Last 24 hours: Intake & Output 05/12/21 05/13/21 05/13/21 22:59 06:59 14:59 Intake Total 550 Balance 550 Lab Results - Last 24 hrs: Laboratory Results - last 24 hr 05/12/21 Range/Units 07:25 Sodium 145 (135-145) mmol/L Potassium 3.2 L (3.5-5.3) mmol/L Chloride 106 (100-110) mmol/L Carbon Dioxide 33 H (21-32) mmol/L BUN 2 L (7-18) mg/dL Creatinine 0.5 L (0.55-1.02) mg/dL Est Cr Clr Drug Dosing 109.21 mL/min Estimated GFR (MDRD) > 60 (>60) BUN/Creatinine Ratio 4.0 L (9-20) Glucose 96 (80-116) mg/dL Calcium 8.4 L (8.6-10.2) mg/dL Total Bilirubin 0.3 (0.1-1.3) mg/dL AST 25 (5-25) IU/L ALT 22 D (12-36) U/L Alkaline Phosphatase 89 (56-112) IU/L Total Protein 6.4 (6.0-8.0) g/dL Albumin 2.9 L (3.2-4.6) g/dL Globulin 3.5 g/dL Albumin/Globulin Ratio 0.8 Med Orders - Current: Current Medications Hydrocodone Bitart/Acetaminophen (Acetaminophen/Hydrocodone 325-10 Mg Tab) 1 tab PO Q6H PRN PRN Reason: Pain Last Admin: 05/11/21 13:24 Dose: 1 tab Documented by: Ascorbic Acid (Ascorbic Acid 500 Mg Tab) 250 mg PO DAILY [facility] Last Admin: 05/13/21 09:00 Dose: 250 mg Documented by: Buspirone HCl (Buspirone 15 Mg Tab) 45 mg PO BID [facility] Last Admin: 05/13/21 08:57 Dose: 45 mg Documented by: Cholecalciferol (Cholecalciferol (Vitamin D3) 25 Mcg Tab) 50 mcg PO BID [facility] Last Admin: 05/13/21 09:00 Dose: 50 mcg Documented by: Clonazepam (Clonazepam 1 Mg Tab) 1 mg PO DAILY [facility] Last Admin: 05/13/21 08:58 Dose: 1 mg Documented by: Clonazepam (Clonazepam 0.5 Mg Tab) 0.5 mg PO DAILY PRN PRN Reason: Anxiety Last Admin: 05/12/21 15:12 Dose: 0.5 mg Documented by: Enoxaparin Sodium (Enoxaparin 40 Mg/0.4 Ml Syringe) 40 mg SUBCUT Q24H [facility] Last Admin: 05/12/21 14:16 Dose: 40 mg Documented by: Escitalopram Oxalate (Escitalopram 10 Mg Tab) 30 mg PO DAILY [facility] Last Admin: 05/13/21 08:59 Dose: 30 mg Documented by: Folic Acid (Folic Acid 1 Mg Tab) 1 mg PO DAILY [facility] Last Admin: 05/13/21 08:58 Dose: 1 mg Documented by: Furosemide (Furosemide 20 Mg Tab) 20 mg PO DAILY [facility] Last Admin: 05/13/21 08:59 Dose: 20 mg Documented by: Gabapentin (Gabapentin 600 Mg Tab) 600 mg PO TID [facility] Last Admin: 05/13/21 08:59 Dose: 600 mg Documented by: Hydroxychloroquine Sulfate (Hydroxychloroquine 200 Mg Tab) 200 mg PO DAILY [facility] Last Admin: 05/13/21 09:00 Dose: 200 mg Documented by: Hydroxyzine Pamoate (Hydroxyzine Pamoate 50 Mg Cap) 50 mg PO BID PRN PRN Reason: Anxiety Lamotrigine (Lamotrigine 100 Mg Tab) 200 mg PO BID [facility] Last Admin: 05/13/21 08:58 Dose: 200 mg Documented by: Leflunomide (Leflunomide 20 Mg Tab) 10 mg PO DAILY [facility] Last Admin: 05/13/21 08:57 Dose: 10 mg Documented by: Lorazepam (Lorazepam 1 Mg Tab) 1 mg PO Q12H PRN PRN Reason: Anxiety Last Admin: 05/12/21 20:24 Dose: 1 mg Documented by: Losartan Potassium (Losartan 100 Mg Tab) 100 mg PO DAILY [facility] Last Admin: 05/13/21 08:58 Dose: 100 mg Documented by: Metoprolol Tartrate (Metoprolol Tartrate 50 Mg Tab) 50 mg PO BID [facility] Last Admin: 05/13/21 08:59 Dose: 50 mg Documented by: Ondansetron HCl (Ondansetron 4 Mg/2 Ml Sdv) 4 mg IVPUSH Q4H PRN PRN Reason: Nausea/Vomiting Last Admin: 05/09/21 09:39 Dose: 4 mg Documented by: Pantoprazole Sodium (Pantoprazole 40 Mg Tab.Cr) 40 mg PO ACBREAKFAST [facility] Last Admin: 05/13/21 06:30 Dose: 40 mg Documented by: Doxepin 150 Mg Cap * (Pt Own Med*) 0 each PO BEDTIME [facility] Last Admin: 05/12/21 20:26 Dose: 150 each Documented by: Pyridoxine HCl (Vitamin B6-Pyridoxine 100 Mg Tab) 25 mg PO DAILY [facility] Last Admin: 05/13/21 09:01 Dose: 25 mg Documented by: Quetiapine Fumarate (Quetiapine 25 Mg Tab) 25 mg PO DAILY [facility] Last Admin: 05/13/21 09:00 Dose: 25 mg Documented by: Quetiapine Fumarate (Quetiapine 25 Mg Tab) 50 mg PO BEDTIME [facility] Last Admin: 05/12/21 20:25 Dose: 50 mg Documented by: Sodium Chloride (Sodium Chloride 0.9% 10 Ml Syringe) 10 ml FLUSH ASDIRECTED PRN PRN Reason: Keep Vein Open Last Admin: 05/12/21 14:26 Dose: 10 ml Documented by: Discontinued Medications Diatrizoate Meglum/Diatrizoate Sod (Diatrizoate Meglumine/Diatrizoate Sodium 37% 30 Ml Bottle) 30 ml PO . DIRECTED ONE Stop: 05/08/21 13:48 Last Admin: 05/08/21 14:36 Dose: 30 ml Documented by: Hydromorphone HCl (Hydromorphone 2 Mg/Ml Sdv) 1 mg IVPUSH Q4H PRN PRN Reason: Breakthrough Pain Last Admin: 05/11/21 02:51 Dose: 1 mg Documented by: Sodium Chloride (Normal Saline) 1,000 mls @ 150 mls/hr IV ASDIRECTED [facility] Last Admin: 05/10/21 05:00 Dose: 150 mls/hr Documented by: Dextrose/Sodium Chloride (Dextrose 5%-Normal Saline) 1,000 mls @ 250 mls/hr IV ASDIRECTED [facility] Last Admin: 05/10/21 07:15 Dose: 150 mls/hr Documented by: Sodium Chloride (Normal Saline) 1,000 mls @ 125 mls/hr IV ASDIRECTED [facility] Last Admin: 05/11/21 04:43 Dose: 125 mls/hr Documented by: Iopamidol (Iopamidol 755 Mg/Ml 100 Ml Bottle) 100 ml IV . DIRECTED ONE Stop: 05/08/21 13:48 Last Admin: 05/08/21 14:36 Dose: 100 ml Documented by: Ketorolac Tromethamine (Ketorolac 30 Mg/Ml Sdv) 30 mg IVPUSH ONETIME ONE Stop: 05/09/21 12:11 Last Admin: 05/09/21 12:30 Dose: 30 mg Documented by: Labetalol HCl (Labetalol 20 Mg/4 Ml Syringe) 10 mg IVPUSH ONETIME ONE; Protocol Stop: 05/10/21 21:16 Last Admin: 05/10/21 21:29 Dose: 10 mg Documented by: Lamotrigine (Lamotrigine 200 Mg Tab) 200 mg PO BID [facility] Last Admin: 05/11/21 09:27 Dose: Not Given Documented by: Lorazepam (Lorazepam 2 Mg/Ml Sdv) 0.25 mg IVPUSH ONETIME ONE Stop: 05/09/21 22:01 Last Admin: 05/09/21 22:11 Dose: 0.25 mg Documented by: Lorazepam (Lorazepam 2 Mg/Ml Sdv) 0.5 mg IVPUSH ONETIME ONE Stop: 05/10/21 21:17 Last Admin: 05/10/21 22:11 Dose: 0.5 mg Documented by: Losartan Potassium (Losartan 50 Mg Tab) 50 mg PO DAILY [facility] Last Admin: 05/11/21 08:11 Dose: 50 mg Documented by: Losartan Potassium (Losartan 50 Mg Tab) 100 mg PO DAILY [facility] Losartan Potassium (Losartan 50 Mg Tab) 50 mg PO ONETIME ONE Stop: 05/11/21 16:50 Last Admin: 05/11/21 18:49 Dose: 50 mg Documented by: Metoprolol Tartrate (Metoprolol Tartrate 50 Mg Tab) Confirm Administered Dose 50 mg .ROUTE .[facility] ONE Stop: 05/10/21 18:43 Last Admin: 05/11/21 08:04 Dose: Not Given Documented by: Morphine Sulfate (Morphine 2 Mg/Ml Syringe) 2 mg IVPUSH Q2H PRN PRN Reason: Pain (severe 7-10) Last Admin: 05/08/21 17:05 Dose: 2 mg Documented by: Non-Formulary Medication (Ascorbic Acid [Vitamin C]) 250 mg PO ACBREAKFAST PAT Quetiapine Fumarate (Quetiapine 50 Mg Tab) 50 mg PO BEDTIME PAT Last Admin: 05/11/21 22:12 Dose: Not Given Documented by:
== END 2021-05-13 11:35 | disposition home or self-care (01) | DRG 390 ==
LOC: FB.MS 08:10 → INTOOBSV 12:01 → OBSVTOIN 05-11 08:10
PROVIDERS: ADMIT Family Medicine; ATTEND Family Medicine
PROC: 0D9670Z Drainage of Stomach with Drainage Device, Via Natural or Artificial Opening (ICD-10-PCS; principal; 2021-05-11)
DX: K56.600 Partial intestinal obstruction, unspecified as to cause (principal); I11.0 Hypertensive heart disease with heart failure; I50.9 Heart failure, unspecified; M54.9 Dorsalgia, unspecified; G89.29 Other chronic pain; F41.9 Anxiety disorder, unspecified; F32.A Depression, unspecified; E66.9 Obesity, unspecified; D64.9 Anemia, unspecified; Z98.84 Bariatric surgery status; Z88.0 Allergy status to penicillin; Z90.49 Acquired absence of other specified parts of digestive tract; Z98.890 Other specified postprocedural states; Z79.899 Other long term (current) drug therapy; Z90.710 Acquired absence of both cervix and uterus; Z68.32 Body mass index [BMI] 32.0-32.9, adult
CPT/HCPCS: 36410; 36415; 74018; 74177; 80048; 80053; 81001; 85025; 96372; 96374; 96375; 96376; A9270-GY; G0378; J1170; J1650; J1885; J2060; J2270; J2405; J3490; J7030; Q9963; Q9967

== ENCOUNTER 2021-08-15 02:03 | Observation (INO) | payer MEDICARE ==
[2021-08-15] MEDS: Sodium Chloride 0.9% 10 ML Syringe FLUSH PRN ×2 (02:25→15:07)
[2021-08-15] MEDS ORDERED: Ondansetron 4 MG/2 ML SDV IVPUSH STA (02:27)
[2021-08-15] MEDS ORDERED: Morphine 4 MG/ML VIAL IVPUSH STA (02:28)
[2021-08-15] MEDS ORDERED: Sodium Chloride 0.9% 1,000 ML IV SCH (02:30)
[2021-08-15] MEDS ORDERED: Iopamidol 755 Mg/ML 100 ML Bottle IV ONE (04:08)
[2021-08-15] MEDS ORDERED: HYDROmorphone 2 MG/ML SDV IVPUSH STA (04:49)
[2021-08-15] MEDS ORDERED: Ondansetron 4 MG/2 ML SDV IVPUSH ONE (04:52)
[2021-08-15] MEDS ORDERED: HYDROmorphone 2 MG/ML SDV IVPUSH ONE (05:59)
[2021-08-15] MEDS: HYDROmorphone 2 MG/ML SDV IVPUSH PRN ×4 (07:23→18:20)
[2021-08-15] MEDS: Sodium Chloride 0.9% 1,000 ML IV SCH ×2 (07:31→15:15)
[2021-08-15] MEDS ORDERED: LORazepam 2 MG/ML SDV IVPUSH PRN (10:00)
[2021-08-15] MEDS: Ondansetron 4 MG/2 ML SDV IVPUSH PRN ×2 (10:30→15:10)
[2021-08-15] MEDS: Enoxaparin 40 MG/0.4 ML Syringe SUBCUT SCH (10:31)
[2021-08-15] MEDS ORDERED: Pantoprazole 40 MG Vial IVPUSH SCH (16:15)
[2021-08-15] MEDS ORDERED: Levofloxacin/Dextrose 5%-Water 750 MG in Premix Bag 1 BAG IV SCH (16:15)
[2021-08-15] MEDS: DOXEPIN 150 MG PO SCH (20:13)
[2021-08-16] MEDS: HYDROmorphone 2 MG/ML SDV IVPUSH PRN (00:49)
[2021-08-16] MEDS: Sodium Chloride 0.9% 1,000 ML IV SCH ×3 (00:52→18:59)
[2021-08-16] MEDS: Enoxaparin 40 MG/0.4 ML Syringe SUBCUT SCH (09:57)
[2021-08-16] MEDS: Acetaminophen 325 MG Tab PO PRN (10:46)
[2021-08-16] MEDS ORDERED: DOCUSATE SODIUM PO PRN (10:46)
[2021-08-16] MEDS ORDERED: SENNOSIDES PO PRN (10:46)
[2021-08-16] MEDS: LEFLUNOMIDE 10 MG PO SCH (13:12)
[2021-08-16] MEDS: FOLIC ACID 1 MG PO SCH (13:13)
[2021-08-16] MEDS: Furosemide 20 MG Tab *PT OWN MED PO SCH (13:14)
[2021-08-16] MEDS: HYDROXYCHLOROQUINE 200 MG PO SCH (13:16)
[2021-08-16] MEDS: LAMOTRIGINE 200 MG PO SCH ×2 (13:16→20:08)
[2021-08-16] MEDS: QUETIAPINE 25 MG PO SCH (13:17)
[2021-08-16] MEDS ORDERED: Fluticasone Propionate Nasal Spray 16 GM Bottle NASBOTH PRN (15:10)
[2021-08-16] MEDS ORDERED: Non-Formulary Medication 1 Each (Ondansetron Hcl [Zofran] 4 MG Tablet) PO PRN (15:10)
[2021-08-16] MEDS: Levofloxacin 750 MG Tab PO SCH (15:41)
[2021-08-16] MEDS: Codeine/guaiFENesin 10-100 MG/5 ML Syrup 5 ML Cup PO PRN (17:54)
[2021-08-16] MEDS: ClonazePAM 1 MG Tab PO SCH (20:07)
[2021-08-16] MEDS: DOXEPIN 150 MG PO SCH (20:11)
[2021-08-16] MEDS: QUETIAPINE 50 MG PO SCH (20:16)
[2021-08-16] MEDS ORDERED: Aspirin 81 MG Tab.EC PO SCH (21:00)
[2021-08-16] MEDS ORDERED: Cyclobenzaprine 10 MG Tab PO SCH (21:00)
[2021-08-16] MEDS ORDERED: DOCUSATE SODIUM PO SCH (21:00)
[2021-08-16] MEDS ORDERED: SENNOSIDES PO SCH (21:00)
[2021-08-16] MEDS ORDERED: Non-Formulary Medication 1 Each (Cholecalciferol (Vitamin D3) [Vitamin D3] 50 MCG Tablet) PO SCH (21:00)
[2021-08-17] MEDS: Acetaminophen 325 MG Tab PO PRN (08:07)
[2021-08-17] MEDS: ClonazePAM 1 MG Tab PO SCH (08:07)
[2021-08-17] MEDS: FOLIC ACID 1 MG PO SCH (08:11)
[2021-08-17] MEDS: LEFLUNOMIDE 10 MG PO SCH (08:11)
[2021-08-17] MEDS: LAMOTRIGINE 200 MG PO SCH (08:12)
[2021-08-17] MEDS: Furosemide 20 MG Tab *PT OWN MED PO SCH (08:12)
[2021-08-17] MEDS: Enoxaparin 40 MG/0.4 ML Syringe SUBCUT SCH (08:14)
[2021-08-17] MEDS: HYDROXYCHLOROQUINE 200 MG PO SCH (08:15)
[2021-08-17] MEDS: QUETIAPINE 50 MG PO SCH (08:16)
[2021-08-17] MEDS ORDERED: PYRIDOXINE HCL 25 MG PO SCH (09:00)
[2021-08-17] MEDS ORDERED: Non-Formulary Medication 1 Each (Ascorbic Acid [Vitamin C] 250 MG Tablet) PO SCH (09:00)
[2021-08-17] MEDS ORDERED: Pantoprazole 40 MG Tab.CR PO SCH (09:00)
[2021-08-17] MEDS: Codeine/guaiFENesin 10-100 MG/5 ML Syrup 5 ML Cup PO PRN (11:22)
[2021-08-17] MEDS: QUETIAPINE 25 MG PO SCH (15:08)
[2021-08-17] MEDS: Levofloxacin 750 MG Tab PO SCH (15:08)
== END 2021-08-17 13:12 | disposition home or self-care (01) ==
LOC: FB.ED 02:03 → FB.MS 05:59 → FB.ED 07:55
PROVIDERS: ADMIT Student in an Organized Health Care Education/Training Program; ATTEND Family Medicine
DX: K56.609 Unspecified intestinal obstruction, unspecified as to partial versus complete obstruction (principal); I11.0 Hypertensive heart disease with heart failure; I50.9 Heart failure, unspecified; F41.9 Anxiety disorder, unspecified; F32.A Depression, unspecified; G43.909 Migraine, unspecified, not intractable, without status migrainosus; E66.9 Obesity, unspecified; Z98.890 Other specified postprocedural states; Z90.49 Acquired absence of other specified parts of digestive tract; Z98.84 Bariatric surgery status; Z20.822 Contact with and (suspected) exposure to COVID-19; Z88.0 Allergy status to penicillin; Z79.899 Other long term (current) drug therapy
CPT/HCPCS: 36415; 71045; 74177; 80048; 80053; 81001; 82150; 83690; 85025; 87040; 94150; 96374; 96375; 96376; 99285-25; A9270-GY; C9113; J1170; J1650; J1956; J2060; J2270; J2405; J7030; Q9967; U0002

== ENCOUNTER 2022-09-11 14:48 | Emergency (ER) | payer MEDICARE ==
[2022-09-11] MEDS: Sodium Chloride 0.9% 10 ML Syringe FLUSH PRN ×3 (15:02→16:43)
[2022-09-11] MEDS ORDERED: Albuterol/Ipratropium 3.0-0.5 MG/3 ML Neb Soln NEB ONE (15:19)
[2022-09-11 15:30] LABS: ESTIMATED GFR 71 mL/min (>60)
[2022-09-11 15:47] LABS: BASE EXCESS VENOUS,POC 2 mmol/L (-2 - 3+); PCO2 VENOUS,POC 40 mmHg (41-51); PH VENOUS,POC 7.43 pH Units (7.32-7.43)
[2022-09-11 16:16] LABS: CORONAVIRUS COVID-19 NAA NEGATIVE (NEGATIVE)
[2022-09-11] MEDS ORDERED: Furosemide 20 MG/2 ML VIAL IVPUSH ONE (16:21)
[2022-09-11] MEDS ORDERED: cefTRIAXone 1 GM Vial IVPUSH STA (16:21)
[2022-09-11] MEDS ORDERED: Azithromycin 500 MG in Sodium Chloride 0.9% 250 ML IV STA (16:21)
== END 2022-09-11 17:30 ==
LOC: FB.ED 14:48
DX: J18.9 Pneumonia, unspecified organism (principal); N39.0 Urinary tract infection, site not specified; R09.02 Hypoxemia; I11.0 Hypertensive heart disease with heart failure; I50.9 Heart failure, unspecified; M06.9 Rheumatoid arthritis, unspecified; E66.9 Obesity, unspecified; Z68.34 Body mass index [BMI] 34.0-34.9, adult; Z79.899 Other long term (current) drug therapy; Z79.82 Long term (current) use of aspirin; Z88.0 Allergy status to penicillin; Z20.822 Contact with and (suspected) exposure to COVID-19
CPT/HCPCS: 0241U; 36415; 71045; 80053; 81001; 83605; 83880; 84484; 85025; 86140; 87086; 87088; 87186; 93005; 93010; 94640; 96365; 96375; 99285; J0456; J0696; J1940; J3490; J7050; J7620

== ENCOUNTER 2023-06-03 20:37 | Emergency (ER) | payer MEDICARE ==
[2023-06-03] MEDS ORDERED: traMADol 50 MG Tab PO ONE (20:38)
[2023-06-03] MEDS ORDERED: HYDROmorphone 2 MG/ML SDV IM ONE (21:16)
[2023-06-03] MEDS ORDERED: hydrOXYzine HCl 50 MG/ML SDV IM ONE (21:16)
== END 2023-06-03 21:40 | disposition home or self-care (01) ==
LOC: FB.ED 20:37
DX: S82.51XA Displaced fracture of medial malleolus of right tibia, initial encounter for closed fracture (principal); I10 Essential (primary) hypertension; Z79.899 Other long term (current) drug therapy; Z88.0 Allergy status to penicillin; Z79.82 Long term (current) use of aspirin; Z90.49 Acquired absence of other specified parts of digestive tract; W20.8XXA Other cause of strike by thrown, projected or falling object, initial encounter
CPT/HCPCS: 73610-RT; 96372; 99283; A9270-GY; J1170; J3410

== ENCOUNTER 2025-06-12 16:58 | Emergency (ER) | payer MEDICARE ==
[2025-06-12] MEDS ORDERED: Sodium Chloride 0.9% 10 ML Syringe FLUSH PRN (17:12)
[2025-06-12] MEDS: 50% Dextrose in Water 50 ML Syringe IVPUSH ONE (17:17)
[2025-06-12 17:46] LABS: PRO B-TYPE NATRIUR PEPT,BNPPRO 391 pg/mL (<=125)
[2025-06-12] MEDS: Iopamidol 755 Mg/ML 100 ML Bottle IV SCH (18:43)
== END 2025-06-12 20:31 | disposition home or self-care (01) ==
LOC: FB.ED 16:58
DX: E16.2 Hypoglycemia, unspecified (principal); R06.02 Shortness of breath; I11.0 Hypertensive heart disease with heart failure; I50.9 Heart failure, unspecified; E66.9 Obesity, unspecified; Z79.899 Other long term (current) drug therapy; Z88.0 Allergy status to penicillin; Z79.51 Long term (current) use of inhaled steroids; Z90.49 Acquired absence of other specified parts of digestive tract; Z90.710 Acquired absence of both cervix and uterus
CPT/HCPCS: 36415; 71275; 80307; 82947; 83735; 83880; 84484; 85379; 86140; 93005; 96374; 99285-25; J7030; Q9967